=== PATIENT | male | born 1975 | race American Indian/Alaskan Native ===

== ENCOUNTER 2019-11-16 11:06 | Inpatient (IN) | payer OTHER ==
--- NOTE | 2019-11-16 11:21 | Event Note ---
ED Screening Note Date of service: 11/16/19 Time: 11:18 ED Screening Note: Pt complains of abdominal pain x 1 month and hematemesis x 2 weeks pain is periumbilical denies hx of HTN-BP 259/165 denies melena or hematochezia This initial assessment/diagnostic orders/clinical plan/treatment(s) is/are subject to change based on patients health status, clinical progression and re- assessment by fellow clinical providers in the ED. Further treatment and workup at subsequent clinical providers discretion. Patient/guardian urged not to elope from the ED as their condition may be serious if not clinically assessed and managed. Initial orders include: MAIN labs CT
--- NOTE | 2019-11-16 11:51 | Emergency Department Report ---
HPI - General Chief Complaint: Nausea/Vomiting/Diarrhea Time Seen by Provider: 11/16/19 11:17 - HPI HPI: 44-year-old male presents to the emergency department from home with complaint of nausea and vomiting, mild abdominal discomfort and vomiting blood. The patient says that he has been having one to 2 episodes of nausea and vomiting every day, usually in the morning, for the past month. He first saw some blood tinged emesis about 2 weeks ago but once again saw it this morning, which is what prompted him to come in. He complains of some intermittent mild mid abdominal pain and says that he has a "knot" there. The patient also p resents with extremely elevated blood pressure. He denies any history of hypertension or any other past medical history, but does not follow up with a primary care physician and has not for "years." He has not taken anything for her symptoms prior to presentation today. He is a tobacco smoker. Denies illicit drug use. Does drink a moderate amount of caffeine. ED Past Medical Hx - Social History Smoking Status: Current Every Day Smoker Substance Use Type: Marijuana ED Review of Systems ROS: Stated complaint: VOMITNG AND ABD PAIN Other details as noted in HPI Comment: All other systems reviewed and negative Constitutional: denies: fever Eyes: denies: eye pain, vision change ENT: denies: ear pain, throat pain Respiratory: denies: cough, shortness of breath Cardiovascular: denies: chest pain, palpitations Gastrointestinal: abdominal pain, nausea, vomiting, hematemesis Genitourinary: denies: dysuria, discharge Musculoskeletal: denies: back pain, arthralgia Skin: denies: rash, lesions Neurological: denies: headache, weakness Physical Exam - Physical Exam Vital Signs: Vital Signs 11/16/19 11:17 Temperature 98.3 F Pulse Rate 96 H Respiratory 18 Rate Blood Pressure 259/165 O2 Sat by Pulse 99 Oximetry Physical Exam: GENERAL: The patient is well-developed well-nourished. HEENT: Normocephalic. Atraumatic. Patient has moist mucous membranes. EYES: Extraocular motions are intact. NECK: Supple. Trachea is midline CHEST/LUNGS: Clear to auscultation. There is no respiratory distress noted. HEART/CARDIOVASCULAR: Regular. There is no tachycardia. ABDOMEN: Abdomen is soft, nontender. Patient has normal bowel sounds. There is no abdominal distention. SKIN: Skin is warm and dry. NEURO: The patient is awake, alert, and oriented. The patient is cooperative. The patient has no focal neurologic deficits. Normal speech. MUSCULOSKELETAL: There is no tenderness or deformity. There is no limitation range of motion. There is no evidence of acute injury. ED Course Vital Signs 11/16/19 11:17 Temperature 98.3 F Pulse Rate 96 H Respiratory 18 Rate Blood Pressure 259/165 O2 Sat by Pulse 99 Oximetry ED Medical Decision Making - Lab Data Result diagrams: 11/16/19 11:37 11/16/19 11:37 - Radiology Data Radiology results: report reviewed CT ABDOMEN AND PELVIS WITHOUT CONTRAST INDICATION / CLINICAL INFORMATION: Abdominal pain and renal failure. TECHNIQUE: Axial CT images were obtained through the abdomen and pelvis without IV contrast. All CT scans at this location are performed using CT dose reduction for ALARA by means of automated exposure control. COMPARISON: None available. FINDINGS: LOWER CHEST: No significant abnormality. LIVER: No significant abnormality. GALLBLADDER: No significant abnormality. BILE DUCTS: No significant abnormality. PANCREAS: No significant abnormality. SPLEEN: No significant abnormality. ADRENALS: No significant abnormality. RIGHT KIDNEY and URETER: Subcentimeter hypoattenuating cystic lesion at the lowe r pole posteriorly is incompletely characterized on this noncontrast examination. No calculus, hydronephrosis or other acute abnormality is evident. LEFT KIDNEY and URETER: No significant abnormality. STOMACH and SMALL BOWEL: No significant abnormality. COLON: No significant abnormality. APPENDIX: No significant abnormality. PERITONEUM: No free fluid. No free air. No fluid collection. LYMPH NODES: No adenopathy. AORTA and ARTERIES: No significant abnormality. IVC and VEINS: No significant abnormality. URINARY BLADDER: No significant abnormality. REPRODUCTIVE ORGANS: No significant abnormality. ADDITIONAL FINDINGS: None. SKELETAL SYSTEM: No acute abnormality. Degenerative disc disease of greatest severity at L5-S1. IMPRESSION: 1. No acute abnormality. A nonemergent renal protocol CT with IV contrast could be considered for further evaluation of the small right renal cyst, when the patient is able. - Medical Decision Making This patient presents to the emergency department with a complaint of having nausea and vomiting at least once a day and today having some hematemesis. He also presents with extremely elevated blood pressure with a systolic greater than 250. The patient has not followed with a primary care physician in many years. Patient's labs show renal failure with a GFR of 28. He has some mild hypokalemia that was replaced with potassium chloride. The rest of the labs are mostly unremarkable including CBC, metabolic panel and U/A. The patient had a CT scan of the abdomen and pelvis that did not show any significant abnormality. The patient has not had any further nausea or vomiting, hematemesis, since being in the emergency department. The patient was given 20 mg of labetalol, followed by 20 mg of hydralazine, that did not make much improvement in the patient's severe hypertension. He will be placed on a Cardene drip and admitted to the ICU. The patient was accepted for admission by the hospitalist, Dr. Bates. - Differential Diagnosis Jenny-Houston tear, malignancy, gastritis, hypertensive crisis Critical Care Time: Yes Critical care time in (mins) excluding proc time.: 35 Critical care attestation.: If time is entered above; I have spent that time in minutes in the direct care of this critically ill patient, excluding procedure time. Critical care time was spent on this patient and doing his initial evaluation, multiple re- evaluations, ordering and interpretation of labs and imaging, multiple discussio ns with the patient and his family, ordering of antihypertensive medications including the Cardene drip. Critical Care Time: 35 ED Disposition Clinical Impression: Accelerated hypertension, Hypokalemia Renal failure Qualifiers: Renal failure chronicity: acute Acute renal failure type: unspecified Qualified Code(s): N17.9 - Acute kidney failure, unspecified Disposition: PAT REG,NO TRIAGE Is pt being admited?: Yes Condition: Serious Time of Disposition: 14:49
[2019-11-16 12:30] LABS: Basophils % (Auto) 0.6 % (0.0-1.8); Eosinophils % (Auto) 0.2 % (0.0-4.3); Hematocrit 40.1 % (35.5-45.6); Hemoglobin 13.3 gm/dl (11.8-15.2); Lymphocytes # (Auto) 1.3 K/mm3 (1.2-5.4); Lymphocytes % (Auto) 15.1 % (13.4-35.0); Mean Corpuscular HGB Conc 33 % (32-34); Mean Corpuscular Volume 85 fl (84-94); Monocytes % (Auto) 11.9 % (0.0-7.3); Platelet Count 118 K/mm3 (140-440); Red Blood Count 4.74 M/mm3 (3.65-5.03); Red Cell Distribution Width 16.2 % (13.2-15.2)
[2019-11-16 12:32] LABS: INR 1.12 (0.87-1.13)
[2019-11-16 12:33] LABS: Partial Thromboplastin Time 32.9 Sec. (24.2-36.6)
[2019-11-16 13:11] LABS: Albumin 4.1 g/dL (3.9-5); Calcium 9.2 mg/dL (8.4-10.2)
[2019-11-16] MEDS ORDERED: POTASSIUM CHLORIDE ER 20 MEQ TAB PO ONE (13:12)
[2019-11-16] MEDS ORDERED: hydrALAZINE 20 MG/1 ML INJ IV ONE (13:19)
[2019-11-16 13:37] LABS: Bilirubin,Urine NEG (Negative); Blood,Urine MOD (Negative); Color,Urine Yellow (Yellow); Urobilinogen,Urine < 2.0 mg/dL (<2.0)
--- NOTE | 2019-11-16 14:35 | Cat Scan Report ---
CT ABDOMEN AND PELVIS WITHOUT CONTRAST INDICATION / CLINICAL INFORMATION: Abdominal pain and renal failure. TECHNIQUE: Axial CT images were obtained through the abdomen and pelvis without IV contrast. All CT scans [facility] are performed using CT dose reduction for ALARA by means of automated exposure control. COMPARISON: None available. FINDINGS: LOWER CHEST: No significant abnormality. LIVER: No significant abnormality. GALLBLADDER: No significant abnormality. BILE DUCTS: No significant abnormality. PANCREAS: No significant abnormality. SPLEEN: No significant abnormality. ADRENALS: No significant abnormality. RIGHT KIDNEY and URETER: Subcentimeter hypoattenuating cystic lesion at the lower pole posteriorly is incompletely characterized on this noncontrast examination. No calculus, hydronephrosis or other acu te abnormality is evident. LEFT KIDNEY and URETER: No significant abnormality. STOMACH and SMALL BOWEL: No significant abnormality. COLON: No significant abnormality. APPENDIX: No significant abnormality. PERITONEUM: No free fluid. No free air. No fluid collection. LYMPH NODES: No adenopathy. AORTA and ARTERIES: No significant abnormality. IVC and VEINS: No significant abnormality. URINARY BLADDER: No significant abnormality. REPRODUCTIVE ORGANS: No significant abnormality. ADDITIONAL FINDINGS: None. SKELETAL SYSTEM: No acute abnormality. Degenerative disc disease of greatest severity at L5-S1. IMPRESSION: 1. No acute abnormality. A nonemergent renal protocol CT with IV contrast could be considered for fu rther evaluation of the small right renal cyst, when the patient is able. Signer Name: Nishant Wright MD Signed: 11/16/2019 2:30 PM Workstation Name: [id number]
[2019-11-16] MEDS: niCARdipine 50 MG in SODIUM CHLORIDE 0.9% 250ML 230 ML IV SCH ×2 (16:06→22:08)
[2019-11-16] MEDS ORDERED: ACETAMINOPHEN 325 MG TAB PO PRN (17:41)
[2019-11-16] MEDS ORDERED: SODIUM CHLORIDE 0.45% 1000 ML 1,000 ML IV SCH (18:00)
[2019-11-16] MEDS: ONDANSETRON 4 MG/2 ML INJ IV PRN (20:24)
--- NOTE | 2019-11-16 20:57 | History and Physical Report ---
History of Present Illness Date of admission: 11/16/19 14:49 History of present illness: 44-year-old man who presents to the hospital complaining of vomiting x1 month and hematemesis x2 weeks. The patient states that he did not come to the hospital because he is afraid of doctors and hospitals and he also had to work and could not get the time off. His family members noted that he was vomiting blood and then encouraged him to come into the hospital today. At this time the patient is still complaining of some nausea, but has not vomiting since he has been here. He states that he has not seen a doctor in many years and does not take any medications. He admits to smoking marijuana daily. Past medical history denies chronic medical problems Past surgical history denies major surgeries Social history; current everyday smoker, current everyday marijuana abuser Family history; heart disease Medications and Allergies Allergies Allergy/AdvReac Type Severity Reaction Status Date / Time No Known Allergies Allergy Unverified 11/16/19 11:13 Active Meds: Active Medications Acetaminophen (Tylenol) 650 mg PO Q4H PRN PRN Reason: Pain MILD(1-3)/Fever >100.5/KELLEY Nicardipine HCl 50 mg/ Sodium (Chloride) 250 mls @ 25 mls/hr IV TITR FLEX; Protocol Last Titration: 11/16/19 20:50 Dose: 10 mg/hr, 50 mls/hr Documented by: Sodium Chloride (Nacl 0.45% 1000 Ml) 1,000 mls @ 125 mls/hr IV DIRECT FLEX Nicotine (Habitrol) 14 mg TD QDAY FLEX Nifedipine (Procardia Xl) 90 mg PO Q12H FLEX Ondansetron HCl (Zofran) 4 mg IV Q8H PRN PRN Reason: Nausea And Vomiting Last Admin: 11/16/19 20:24 Dose: 4 mg Documented by: Pantoprazole Sodium (Protonix) 40 mg PO QDAY FLEX Sodium Chloride (Sodium Chloride Flush Syringe 10 Ml) 10 ml IV BID FLEX Sodium Chloride (Sodium Chloride Flush Syringe 10 Ml) 10 ml IV PRN PRN PRN Reason: LINE FLUSH Exam - Constitutional Vitals: Temp Pulse Resp BP Pulse Ox 98.2 F 95 H 27 H 149/91 92 11/16/19 13:00 11/16/19 20:00 11/16/19 20:00 11/16/19 20:00 11/16/19 20:00 Results - Labs CBC & Chem 7: 11/16/19 11:37 11/16/19 11:37 Labs: Laboratory Last Values WBC 8.6 K/mm3 (4.5-11.0) 11/16/19 11:37 RBC 4.74 M/mm3 (3.65-5.03) 11/16/19 11:37 Hgb 13.3 gm/dl (11.8-15.2) 11/16/19 11:37 Hct 40.1 % (35.5-45.6) 11/16/19 11:37 MCV 85 fl (84-94) 11/16/19 11:37 MCH 28 pg (28-32) 11/16/19 11:37 MCHC 33 % (32-34) 11/16/19 11:37 RDW 16.2 % (13.2-15.2) H 11/16/19 11:37 Plt Count 118 K/mm3 (140-440) L 11/16/19 11:37 Lymph % (Auto) 15.1 % (13.4-35.0) 11/16/19 11:37 [place] % (Auto) 11.9 % (0.0-7.3) H 11/16/19 11:37 Eos % (Auto) 0.2 % (0.0-4.3) 11/16/19 11:37 Baso % (Auto) 0.6 % (0.0-1.8) 11/16/19 11:37 Lymph # 1.3 K/mm3 (1.2-5.4) 11/16/19 11:37 [place] # 1.0 K/mm3 (0.0-0.8) H 11/16/19 11:37 Eos # 0.0 K/mm3 (0.0-0.4) 11/16/19 11:37 Baso # 0.0 K/mm3 (0.0-0.1) 11/16/19 11:37 Seg Neutrophils % 72.2 % (40.0-70.0) H 11/16/19 11:37 Seg Neutrophils # 6.2 K/mm3 (1.8-7.7) 11/16/19 11:37 PT 14.6 Sec. (12.2-14.9) 11/16/19 11:37 INR 1.12 (0.87-1.13) 11/16/19 11:37 APTT 32.9 Sec. (24.2-36.6) 11/16/19 11:37 Sodium 141 mmol/L (137-145) 11/16/19 11:37 Potassium 3.2 mmol/L (3.6-5.0) L 11/16/19 11:37 Chloride 102.2 mmol/L (98-107) 11/16/19 11:37 Carbon Dioxide 23 mmol/L (22-30) 11/16/19 11:37 Anion Gap 19 mmol/L 11/16/19 11:37 BUN 29 mg/dL (9-20) H 11/16/19 11:37 Creatinine 3.0 mg/dL (0.8-1.5) H 11/16/19 11:37 Estimated GFR 23 ml/min 11/16/19 11:37 BUN/Creatinine Ratio 10 % 11/16/19 11:37 Glucose 93 mg/dL (75-100) 11/16/19 11:37 Calcium 9.2 mg/dL (8.4-10.2) 11/16/19 11:37 Total Bilirubin 0.60 mg/dL (0.1-1.2) 11/16/19 11:37 AST 24 units/L (5-40) 11/16/19 11:37 ALT 17 units/L (7-56) 11/16/19 11:37 Alkaline Phosphatase 104 units/L (35-129) 11/16/19 11:37 Total Protein 7.3 g/dL (6.3-8.2) 11/16/19 11:37 Albumin 4.1 g/dL (3.9-5) 11/16/19 11:37 Albumin/Globulin Ratio 1.3 % 11/16/19 11:37 Lipase 30 units/L (13-60) 11/16/19 11:37 Urine Color Yellow (Yellow) 11/16/19 12:59 Urine Turbidity Clear (Clear) 11/16/19 12:59 Urine pH 6.0 (5.0-7.0) 11/16/19 12:59 Ur Specific [place] 1.011 (1.003-1.030) 01/04/20 12:59 Urine Protein 100 mg/dl mg/dL (Negative) 11/16/19 12:59 Urine Glucose (UA) Neg mg/dL (Negative) 11/16/19 12:59 Urine Ketones Neg mg/dL (Negative) 11/16/19 12:59 Urine Blood Mod (Negative) 11/16/19 12:59 Urine Nitrite Neg (Negative) 11/16/19 12:59 Urine Bilirubin Neg (Negative) 11/16/19 12:59 Urine Urobilinogen < 2.0 mg/dL (<2.0) 11/16/19 12:59 Ur Leukocyte Esterase Tr (Negative) 11/16/19 12:59 Urine WBC (Auto) 8.0 /HPF (0.0-6.0) H 11/16/19 12:59 Urine RBC (Auto) 2.0 /HPF (0.0-6.0) 11/16/19 12:59 U Epithel Cells (Auto) < 1.0 /HPF (0-13.0) 11/16/19 12:59 Assessment and Plan Assessment and plan: 44-year-old man who presents to the hospital with 1 month of nausea vomiting and 2 weeks of hematemesis, found to have severe hypertension requiring Cardene drip and ICU admission CT abdomen and pelvis 1. No acute abnormality. A nonemergent renal protocol CT with IV contrast could be considered for further evaluation of the small right renal cyst, when the patient is able. Hypertensive emergency Continue Cardene drip, will try to wean to oral medications if patient able to tolerate Hematemesis and intractable nausea vomiting Differential diagnosis include , peptic ulcer disease, gastritis, the bleeding started 2 weeks after the vomiting so patient may have Jenny-Houston tears. Given that the patient admits to daily marijuana abuse and frequent showering when he feels sick, the patient may be suffering from cannabinoid hyperemesis syndrome, but need to exclude a functional diagnosis first. GI consulted, PPI Marijuana abuse Tobacco abuse/dependence Smoking cessation counseling performed for 10 minutes, nicotine patches when necessary Preventative health counseling performed for 17 minutes Acute versus chronic kidney disease Patient has not seen a doctor in many years and this may be his baseline creatinine, trial of IV fluids, nephrology consult Hypokalemia Was repleted, recheck in a.m. Right renal cyst, radiology recommended repeat CT with IV contrast, but given kidney failure will defer to nephrology to see if this is indicated, in the meantime will obtain renal ultrasound DVT prophylaxis with SCDs Critical care time 35 minutes
[2019-11-17] MEDS: niCARdipine 50 MG in SODIUM CHLORIDE 0.9% 250ML 230 ML IV SCH ×3 (02:12→08:14)
[2019-11-17] MEDS: NIFEdipine XL 90 MG TAB PO SCH ×2 (06:24→08:03)
[2019-11-17 06:47] LABS: Basophils # (Auto) 0.1 K/mm3 (0.0-0.1); Basophils % (Auto) 0.6 % (0.0-1.8); Eosinophils % (Auto) 0.4 % (0.0-4.3); Hematocrit 37.4 % (35.5-45.6); Hemoglobin 12.5 gm/dl (11.8-15.2); Lymphocytes # (Auto) 2.1 K/mm3 (1.2-5.4); Lymphocytes % (Auto) 21.3 % (13.4-35.0); Mean Corpuscular HGB Conc 33 % (32-34); Mean Corpuscular Volume 84 fl (84-94); Monocytes # (Auto) 1.3 K/mm3 (0.0-0.8); Monocytes % (Auto) 12.7 % (0.0-7.3); Platelet Count 116 K/mm3 (140-440); Red Blood Count 4.46 M/mm3 (3.65-5.03); Red Cell Distribution Width 16.7 % (13.2-15.2)
[2019-11-17 07:10] LABS: Calcium 9.1 mg/dL (8.4-10.2)
[2019-11-17] MEDS: PANTOPRAZOLE 40 MG TAB PO SCH ×2 (08:03→10:26)
[2019-11-17] MEDS: ONDANSETRON 4 MG/2 ML INJ IV PRN (08:35)
--- NOTE | 2019-11-17 09:07 | Gastroenterology Consultation ---
History of Present Illness - Reason for Consult Consult date: 11/17/19 intractable n/v, hematemesis Requesting physician: NICOLE STOLL - History of Present Illness The patient is a 44 yo aam who presents with intractable n/v/hematemesis and found to have hypertensive emergency for which he has been admitted to the ICU. He reports having daily episodes of n/v for ~1 month; this occurs with and w/o meals. he noticed blood with emesis episodes prior to admission. He has been taking frequent nsaid's for headaches recently. Also reports daily marijuana use. Denies melena or abd pain. No episodes of emesis since admission. Past History Past Medical History: other (no known past medical history) Past Surgical History: No surgical history Social history: other (marijuana abuse) Family history: no significant family history Medications and Allergies Allergies Allergy/AdvReac Type Severity Reaction Status Date / Time No Known Allergies Allergy Unverified 11/16/19 11:13 Home Medications Medication Instructions Recorded Confirmed Last Taken Type No Known Home Medications [No 11/16/19 11/16/19 Unknown History Reported Home Medications] Active Meds: Active Medications Acetaminophen (Tylenol) 650 mg PO Q4H PRN PRN Reason: Pain MILD(1-3)/Fever >100.5/KELLEY Nicardipine HCl 50 mg/ Sodium (Chloride) 250 mls @ 25 mls/hr IV TITR FLEX; Protocol Last Admin: 11/17/19 08:14 Dose: 10 mg/hr, 50 mls/hr Documented by: Sodium Chloride (Nacl 0.45% 1000 Ml) 1,000 mls @ 125 mls/hr IV DIRECT FLEX Nicotine (Habitrol) 14 mg TD QDAY FLEX Nifedipine (Procardia Xl) 90 mg PO Q12H [facility] Last Admin: 11/17/19 08:03 Dose: Not Given Documented by: Ondansetron HCl (Zofran) 4 mg IV Q8H PRN PRN Reason: Nausea And Vomiting Last Admin: 11/17/19 08:35 Dose: 4 mg Documented by: Pantoprazole Sodium (Protonix) 40 mg PO QDAY FLEX Last Admin: 11/17/19 08:03 Dose: Not Given Documented by: Sodium Chloride (Sodium Chloride Flush Syringe 10 Ml) 10 ml IV BID [facility] Last Admin: 11/17/19 06:24 Dose: Not Given Documented by: Sodium Chloride (Sodium Chloride Flush Syringe 10 Ml) 10 ml IV PRN PRN PRN Reason: LINE FLUSH Reviewed/updated patient's home and current medications Review of Systems - Review of Systems All systems: negative (per HPI) Exam - Constitutional Vital Signs: Temp Pulse Resp BP Pulse Ox 98.6 F 101 H 18 146/72 95 11/17/19 03:29 11/17/19 08:15 11/17/19 08:15 11/17/19 08:15 11/17/19 08:15 General appearance: no acute distress, obese - EENT Eyes: PERRL, EOM intact - Respiratory Respiratory effort: normal Respiratory: bilateral: CTA - Cardiovascular Rhythm: regular Heart Sounds: Present: S1 & S2 - Gastrointestinal General gastrointestinal: Present: soft, non-tender, non-distended, hernia - Integumentary Integumentary: Present: clear, warm - Neurologic Neurological: alert and oriented x3 - Psychiatric Psychiatric: appropriate mood/affect - Labs CBC & Chem 7: 11/17/19 06:14 11/17/19 06:14 Lab Results: Laboratory Results - last 24 hr 11/16/19 11/16/19 11/16/19 11:37 11:37 11:37 WBC 8.6 RBC 4.74 Hgb 13.3 Hct 40.1 MCV 85 MCH 28 MCHC 33 RDW 16.2 H Plt Count 118 L Lymph % (Auto) 15.1 [place] % (Auto) 11.9 H Eos % (Auto) 0.2 Baso % (Auto) 0.6 Lymph # 1.3 Mcdonald # 1.0 H Eos # 0.0 Baso # 0.0 Seg Neutrophils % 72.2 H Seg Neutrophils # 6.2 PT 14.6 INR 1.12 APTT 32.9 Sodium 141 Potassium 3.2 L Chloride 102.2 Carbon Dioxide 23 Anion Gap 19 BUN 29 H Creatinine 3.0 H Estimated GFR 23 BUN/Creatinine Ratio 10 Glucose 93 Calcium 9.2 Total Bilirubin 0.60 AST 24 ALT 17 Alkaline Phosphatase 104 Total Protein 7.3 Albumin 4.1 Albumin/Globulin Ratio 1.3 Lipase Urine Color Urine Turbidity Urine pH Ur Specific [place] Urine Protein Urine Glucose (UA) Urine Ketones Urine Blood Urine Nitrite Urine Bilirubin Urine Urobilinogen Ur Leukocyte Esterase Urine WBC (Auto) Urine RBC (Auto) U Epithel Cells (Auto) 11/16/19 11/16/19 11/17/19 11:37 12:59 06:14 WBC 10.1 RBC 4.46 Hgb 12.5 Hct 37.4 MCV 84 MCH 28 MCHC 33 RDW 16.7 H Plt Count 116 L Lymph % (Auto) 21.3 [place] % (Auto) 12.7 H Eos % (Auto) 0.4 Baso % (Auto) 0.6 Lymph # 2.1 [place] # 1.3 H Eos # 0.0 Baso # 0.1 Seg Neutrophils % 65.0 Seg Neutrophils # 6.6 PT INR APTT Sodium Potassium Chloride Carbon Dioxide Anion Gap BUN Creatinine Estimated GFR BUN/Creatinine Ratio Glucose Calcium Total Bilirubin AST ALT Alkaline Phosphatase Total Protein Albumin Albumin/Globulin Ratio Lipase 30 Urine Color Yellow Urine Turbidity Clear Urine pH 6.0 Ur Specific [place] 1.011 Urine Protein 100 mg/dl Urine Glucose (UA) Neg Urine Ketones Neg Urine Blood Mod Urine Nitrite Neg Urine Bilirubin Neg Urine Urobilinogen < 2.0 Ur Leukocyte Esterase Tr Urine WBC (Auto) 8.0 H Urine RBC (Auto) 2.0 U Epithel Cells (Auto) < 1.0 11/17/19 06:14 WBC RBC Hgb Hct MCV MCH MCHC RDW Plt Count Lymph % (Auto) [place] % (Auto) Eos % (Auto) Baso % (Auto) Lymph # Mcd[place] # Eos # Baso # Seg Neutrophils % Seg Neutrophils # PT INR APTT Sodium 137 Potassium 2.9 L* Chloride 101.0 Carbon Dioxide 21 L Anion Gap 18 BUN 26 H Creatinine 2.8 H Estimated GFR 30 BUN/Creatinine Ratio 9 Glucose 124 H Calcium 9.1 Total Bilirubin AST ALT Alkaline Phosphatase Total Protein Albumin Albumin/Globulin Ratio Lipase Urine Color Urine Turbidity Urine pH Ur Specific [place] Urine Protein Urine Glucose (UA) Urine Ketones Urine Blood Urine Nitrite Urine Bilirubin Urine Urobilinogen Ur Leukocyte Esterase Urine WBC (Auto) Urine RBC (Auto) U Epithel Cells (Auto) Assessment and Plan 1. Intractable nausea/vomiting - improved since admission; could be 2/2 degree of hypertension vs hyperemesis from marijuana, vs other etiology. tolerating po today. 2. Hematemesis - prior to admission; H/H normal and has remained stable. cont PPI. monitor for time being given normal labs and no further episodes since admission. diagnostic EGD (eval for PUD, MWT, etc) can be done once acute medical issues resolved 3. Hypertensive emergency
[2019-11-17] MEDS ORDERED: METOCLOPRAMIDE 10 MG/2 ML INJ IV PRN (09:59)
[2019-11-17] MEDS: NICOTINE 14 MG/24 HR PATCH TD SCH (10:26)
[2019-11-17] MEDS ORDERED: POTASSIUM CHLORIDE ER 20 MEQ TAB PO ONE ×2 (10:57→12:57)
[2019-11-17] MEDS ORDERED: hydroCHLOROthiazide 25 MG TAB PO SCH (12:00)
[2019-11-17] MEDS ORDERED: amLODIPine 5 MG TAB PO SCH ×2 (12:00)
--- NOTE | 2019-11-17 12:03 | Consultation ---
History of Present Illness - Reason for Consult Consult date: 11/17/19 Hypertensive Emergency Requesting physician: NICOLE STOLL - History of Present Illness 44 y/o, obese male admitted with nausea and vomiting for at least a month per the fidarryne'. Patient admitted and started on Cardene drip. Also found to be in Renal Failure. patient is awake and alert. Stable now. Still hypertensive. Has not had any more emesis since admission. Remains on Cardene drip and BP is still elevated. has never gone to a physician. Diabetes and HTN run in family. Not currently on any meds. Still smokes with cigarettes. Past History Past Medical History: other (no known past medical history) Past Surgical History: No surgical history Social history: other (marijuana abuse) Family history: no significant family history Medications and Allergies Allergies Allergy/AdvReac Type Severity Reaction Status Date / Time No Known Allergies Allergy Unverified 11/16/19 11:13 Home Medications Medication Instructions Recorded Confirmed Last Taken Type No Known Home Medications [No 11/16/19 11/16/19 Unknown History Reported Home Medications] Active Meds: Active Medications Acetaminophen (Tylenol) 650 mg PO Q4H PRN PRN Reason: Pain MILD(1-3)/Fever >100.5/KELLEY Amlodipine Besylate (Amlodipine) 5 mg PO QDAY [facility] Hydrochlorothiazide (Hctz) 25 mg PO QDAY [facility] Nicardipine HCl 50 mg/ Sodium (Chloride) 250 mls @ 25 mls/hr IV TITR [facility]; Protocol Last Admin: 11/17/19 08:14 Dose: 10 mg/hr, 50 mls/hr Documented by: Labetalol HCl (Labetalol) 100 mg PO BID FLEX Metoclopramide HCl (Reglan) 10 mg IV Q8H PRN PRN Reason: Nausea And Vomiting Nicotine (Habitrol) 14 mg TD QDAY [facility] Last Admin: 11/17/19 10:26 Dose: 14 mg Documented by: Ondansetron HCl (Zofran) 4 mg IV Q8H PRN PRN Reason: N/V unrelieved by Reglan Last Admin: 11/17/19 08:35 Dose: 4 mg Documented by: Pantoprazole Sodium (Protonix) 40 mg PO QDAY [facility] Last Admin: 11/17/19 10:26 Dose: 40 mg Documented by: Potassium Chloride (K-Dur) 20 meq PO ONCE ONE Stop: 11/17/19 12:58 Sodium Chloride (Sodium Chloride Flush Syringe 10 Ml) 10 ml IV BID FLEX Last Admin: 11/17/19 10:26 Dose: 10 ml Documented by: Sodium Chloride (Sodium Chloride Flush Syringe 10 Ml) 10 ml IV PRN PRN PRN Reason: LINE FLUSH Review of Systems All systems: negative Exam - Constitutional Vitals: Temp Pulse Resp BP Pulse Ox 98.6 F 103 H 17 150/110 98 11/17/19 03:29 11/17/19 11:00 11/17/19 11:00 11/17/19 11:00 11/17/19 11:00 General appearance: Present: no acute distress, obese - EENT Eyes: Present: PERRL, EOM intact ENT: poor dentition - Neck Neck: Present: supple, other (large in circumference) - Respiratory Respiratory effort: normal Respiratory: bilateral: CTA - Cardiovascular Rhythm: regular (sinus tachycardia) Heart Sounds: Present: S1 & S2 - Extremities Extremities: no ischemia - Abdominal General gastrointestinal: Present: soft, non-tender, normal bowel sounds - Integumentary Integumentary: Present: clear (Many, many tattoos), warm, dry - Musculoskeletal Musculoskeletal: strength equal bilaterally - Psychiatric Psychiatric: appropriate mood/affect - Neurologic Neurologic: CNII-XII intact Results - Labs CBC & Chem 7: 11/17/19 06:14 11/17/19 06:14 Labs: Abnormal lab results 11/16/19 11/16/19 11/16/19 Range/Units 11:37 11:37 12:59 RDW 16.2 H (13.2-15.2) % Plt Count 118 L (140-440) K/mm3 Gregory % (Auto) 11.9 H (0.0-7.3) % Gregory # 1.0 H (0.0-0.8) K/mm3 Seg Neutrophils % 72.2 H (40.0-70.0) % Potassium 3.2 L (3.6-5.0) mmol/L Carbon Dioxide (22-30) mmol/L BUN 29 H (9-20) mg/dL Creatinine 3.0 H (0.8-1.5) mg/dL Glucose (75-100) mg/dL Urine WBC (Auto) 8.0 H (0.0-6.0) /HPF 11/17/19 11/17/19 Range/Units 06:14 06:14 RDW 16.7 H (13.2-15.2) % Plt Count 116 L (140-440) K/mm3 Gregory % (Auto) 12.7 H (0.0-7.3) % Gregory # 1.3 H (0.0-0.8) K/mm3 Seg Neutrophils % (40.0-70.0) % Potassium 2.9 L* (3.6-5.0) mmol/L Carbon Dioxide 21 L (22-30) mmol/L BUN 26 H (9-20) mg/dL Creatinine 2.8 H (0.8-1.5) mg/dL Glucose 124 H (75-100) mg/dL Urine WBC (Auto) (0.0-6.0) /HPF - Imaging and Cardiology CT scan - abdomen: report reviewed CT scan - pelvis: report reviewed Assessment and Plan 44 y/o male with Hypertensive Emergency and renal failure 1. Continue cardene drip 2. Will start Norvasc 10 and labetalol 100 BID. Will likely need more drugs but did not want to give diuretic with renal failure 3. Reviewed GI note 4. Await renal evaluation. Agree with ultrasound but needs urine lytes as well 5. Smoking cessation, discussed at bedside. 6. Weight loss 7. Should be screened for diabetes and hyperlipidemia while here. Continue ICU care until weaned off drip. Goal should be systolics in the 160's over diastolics in the 90's.
--- NOTE | 2019-11-17 15:11 | Ultrasound Report ---
CHEST 1 VIEW INDICATION / CLINICAL INFORMATION: Acute kidney injury, renal cyst. FINDINGS: Comparison is made to a CT of the abdomen and pelvis performed yesterday. Right kidney length 11.4 cm. Cortical thickness is normal, but echogenicity is increased. No apprecia ble mass, calculus or hydronephrosis. Left renal length 10.3 cm. Cortical thickness is normal, but echogenicity is increased. No appreciabl e mass, calculus or hydronephrosis. Unremarkable appearance of the bladder. IMPRESSION: No hydronephrosis. Increased cortical echogenicity of the kidneys is suggestive of underl lex intrinsic renal disease. Signer Name: Nishant Wright MD Signed: 11/17/2019 3:07 PM Workstation Name: [id number]
[2019-11-17] MEDS ORDERED: hydrALAZINE 20 MG/1 ML INJ IV PRN (16:00)
--- NOTE | 2019-11-17 16:07 | Progress Note ---
Assessment and Plan Assessment and plan: Patient is a 44-year-old man with a history of tobacco dependency and daily marijuana use who presented to [facility] ED with n/v off and on x 2 weeks then developed coffee ground emesis/bloody emesis. He was found to have severe hypertension requiring IV Cardene drip and ICU admission. Cr was found to be 3.0 without history of any kidney problems that he is aware of. * CT abdomen and pelvis 1. No acute abnormality. A nonemergent renal protocol CT with IV contrast could be considered for further evaluation of the small right renal cyst, when the patient is able. Hypertensive emergency weaned off Cardene drip, started oral medications if patient able to tolerate Hematemesis and intractable nausea vomiting Differential diagnosis include , peptic ulcer disease, gastritis, the bleeding started 2 weeks after the vomiting so patient may have Jenny-Houston tears. Given that the patient admits to daily marijuana abuse and frequent showering when he feels sick, the patient may be suffering from cannabinoid hyperemesis syndrome, but need to exclude a functional diagnosis first. GI consulted, PPI Marijuana abuse and Tobacco abuse/dependence Smoking cessation counseling ARF, vasomotor nephropathy, poa Patient has not seen a doctor in many years and this may be his baseline creatinine, trial of IV fluids, nephrology consult Renal u/s pending Hypokalemia Was repleted, recheck in a.m. DVT prophylaxis with SCDs History Interval history: Patient was seen and examined. Follow-up on current diagnosis. Overnight uneventful as no events directly reported to me. Patient denies any chest pain, shortness breath, nausea/vomiting or severe headaches. Imaging, nursing note, chart, labs and old chart reviewed. Discussed with patient. Hospitalist Physical - Physical exam Narrative exam: Gen: WDWN, NAD, Awake, Alert, Orientated HEENT: NCAT, EOMI, PERRL, OP Clear Neck: supple, no adenopathy, no thyromegaly, no JVD CVS/Heart: RRR, normal S1S2, pulses present bilaterally Chest/Lungs: CTA B, Symmetrical chest expansion, good air entry bilaterally GI/Abdomen: soft, NTND, good bowel sounds, no guarding or rebound /Bladder: no suprapubic tenderness, no CVA or paraspinal tenderness Extermity/Skin: no c/c/e, no obvious rash MSK: FROM x 4 Neuro: CN 2-12 grossly intact, no new focal deficits Psych: calm - Constitutional Vitals: Temp Pulse Resp BP Pulse Ox 98.3 F 114 H 36 H 190/87 98 11/17/19 12:00 11/17/19 13:31 11/17/19 13:31 11/17/19 13:31 11/17/19 13:31 General appearance: Present: no acute distress, obese Results - Labs CBC & Chem 7: 11/17/19 06:14 11/17/19 06:14 Labs: Laboratory Last Values WBC 10.1 K/mm3 (4.5-11.0) 11/17/19 06:14 RBC 4.46 M/mm3 (3.65-5.03) 11/17/19 06:14 Hgb 12.5 gm/dl (11.8-15.2) 11/17/19 06:14 Hct 37.4 % (35.5-45.6) 11/17/19 06:14 MCV 84 fl (84-94) 11/17/19 06:14 MCH 28 pg (28-32) 11/17/19 06:14 MCHC 33 % (32-34) 11/17/19 06:14 RDW 16.7 % (13.2-15.2) H 11/17/19 06:14 Plt Count 116 K/mm3 (140-440) L 11/17/19 06:14 Lymph % (Auto) 21.3 % (13.4-35.0) 11/17/19 06:14 [place] % (Auto) 12.7 % (0.0-7.3) H 11/17/19 06:14 Eos % (Auto) 0.4 % (0.0-4.3) 11/17/19 06:14 Baso % (Auto) 0.6 % (0.0-1.8) 11/17/19 06:14 Lymph # 2.1 K/mm3 (1.2-5.4) 11/17/19 06:14 [place] # 1.3 K/mm3 (0.0-0.8) H 11/17/19 06:14 Eos # 0.0 K/mm3 (0.0-0.4) 11/17/19 06:14 Baso # 0.1 K/mm3 (0.0-0.1) 11/17/19 06:14 Seg Neutrophils % 65.0 % (40.0-70.0) 11/17/19 06:14 Seg Neutrophils # 6.6 K/mm3 (1.8-7.7) 11/17/19 06:14 PT 14.6 Sec. (12.2-14.9) 11/16/19 11:37 INR 1.12 (0.87-1.13) 11/16/19 11:37 APTT 32.9 Sec. (24.2-36.6) 11/16/19 11:37 Sodium 137 mmol/L (137-145) 11/17/19 06:14 Potassium 2.9 mmol/L (3.6-5.0) L* 11/17/19 06:14 Chloride 101.0 mmol/L (98-107) 11/17/19 06:14 Carbon Dioxide 21 mmol/L (22-30) L 11/17/19 06:14 Anion Gap 18 mmol/L 11/17/19 06:14 BUN 26 mg/dL (9-20) H 11/17/19 06:14 Creatinine 2.8 mg/dL (0.8-1.5) H 11/17/19 06:14 Estimated GFR 30 ml/min 11/17/19 06:14 BUN/Creatinine Ratio 9 % 11/17/19 06:14 Glucose 124 mg/dL (75-100) H 11/17/19 06:14 Calcium 9.1 mg/dL (8.4-10.2) 11/17/19 06:14 Total Bilirubin 0.60 mg/dL (0.1-1.2) 11/16/19 11:37 AST 24 units/L (5-40) 11/16/19 11:37 ALT 17 units/L (7-56) 11/16/19 11:37 Alkaline Phosphatase 104 units/L (35-129) 11/16/19 11:37 Total Protein 7.3 g/dL (6.3-8.2) 11/16/19 11:37 Albumin 4.1 g/dL (3.9-5) 11/16/19 11:37 Albumin/Globulin Ratio 1.3 % 11/16/19 11:37 Lipase 30 units/L (13-60) 11/16/19 11:37 Urine Color Yellow (Yellow) 11/16/19 12:59 Urine Turbidity Clear (Clear) 11/16/19 12:59 Urine pH 6.0 (5.0-7.0) 11/16/19 12:59 Ur Specific [place] 1.011 (1.003-1.030) 11/16/19 12:59 Urine Protein 100 mg/dl mg/dL (Negative) 11/16/19 12:59 Urine Glucose (UA) Neg mg/dL (Negative) 11/16/19 12:59 Urine Ketones Neg mg/dL (Negative) 11/16/19 12:59 Urine Blood Mod (Negative) 11/16/19 12:59 Urine Nitrite Neg (Negative) 11/16/19 12:59 Urine Bilirubin Neg (Negative) 11/16/19 12:59 Urine Urobilinogen < 2.0 mg/dL (<2.0) 11/16/19 12:59 Ur Leukocyte Esterase Tr (Negative) 11/16/19 12:59 Urine WBC (Auto) 8.0 /HPF (0.0-6.0) H 11/16/19 12:59 Urine RBC (Auto) 2.0 /HPF (0.0-6.0) 11/16/19 12:59 U Epithel Cells (Auto) < 1.0 /HPF (0-13.0) 11/16/19 12:59 Active Medications - Current Medications Current Medications: Generic Name Dose Route Start Last Admin Trade Name Freq PRN Reason Stop Dose Admin Acetaminophen 650 mg 11/16/19 17:41 Tylenol PO Q4H PRN Pain MILD(1-3)/Fever >100.5/KELLEY Amlodipine Besylate 10 mg 11/17/19 12:00 11/17/19 13:10 Amlodipine PO 10 mg QDAY FLEX Administration Hydralazine HCl 10 mg 11/17/19 16:00 Apresoline IV Q4HR PRN Blood Pressure Hydralazine HCl 25 mg 11/17/19 22:00 Apresoline PO Q8HR FLEX Labetalol HCl 100 mg 11/17/19 12:00 11/17/19 13:11 Labetalol PO 100 mg BID FLEX Administration Metoclopramide HCl 10 mg 11/17/19 09:59 Reglan IV Q8H PRN Nausea And Vomiting Nicotine 14 mg 11/17/19 10:00 11/17/19 10:26 Habitrol TD 14 mg QDAY FLEX Administration Ondansetron HCl 4 mg 11/16/19 17:41 11/17/19 08:35 Zofran IV 4 mg Q8H PRN Administration N/V unrelieved by Coleen Pantoprazole Sodium 40 mg 11/16/19 18:00 11/17/19 10:26 Protonix PO 40 mg QDAY FLEX Administration Sodium Chloride 10 ml 11/16/19 22:00 11/17/19 10:26 Sodium Chloride Flush Syringe 10 Ml IV 10 ml BID FLEX Administration Sodium Chloride 10 ml 11/16/19 17:41 Sodium Chloride Flush Syringe 10 Ml IV PRN PRN LINE FLUSH
--- NOTE | 2019-11-17 17:32 | Consultation ---
History of Present Illness - Reason for Consult Consult date: 11/17/19 acute renal failure Requesting physician: NICOLE STOLL - History of Present Illness This is a 44 yo AAM with past medical history of who presents to [facility] ER with c/o frequent nausea, vomiting for the last few weeks, also had 2 episodes of hematemesis last week. In ER pt was found to be hypertensive with BP > 250/160mmHg. Labs showed stable Hb > 13, however BUN/Cr was elevated at 29/3.0mg/dl along with hypokalemia with K < 3, for which renal consult is requested. As per patient, he did not seek medical help because he is afraid of doctors and hospitals and he also had to work and could not get the time off. He states that he has not seen a doctor in many years and does not take any medications. He admits to smoking marijuana daily. He also reports that he has been taking ibuprofen/aleve almost daily for the last 6 months for headaches, and diffuse body aches. Past History Past Medical History: other (no known past medical history) Past Surgical History: No surgical history Social history: other (marijuana abuse) Family history: no significant family history Medications and Allergies Allergies Allergy/AdvReac Type Severity Reaction Status Date / Time No Known Allergies Allergy Unverified 11/16/19 11:13 Home Medications Medication Instructions Recorded Confirmed Last Taken Type No Known Home Medications [No 11/16/19 11/16/19 Unknown History Reported Home Medications] Active Meds: Active Medications Acetaminophen (Tylenol) 650 mg PO Q4H PRN PRN Reason: Pain MILD(1-3)/Fever >100.5/KELLEY Amlodipine Besylate (Amlodipine) 10 mg PO QDAY [facility] Last Admin: 11/17/19 13:10 Dose: 10 mg Documented by: Hydralazine HCl (Apresoline) 10 mg IV Q4HR PRN PRN Reason: Blood Pressure Hydralazine HCl (Apresoline) 25 mg PO Q8HR [facility] Labetalol HCl (Labetalol) 100 mg PO BID [facility] Last Admin: 11/17/19 13:11 Dose: 100 mg Documented by: Metoclopramide HCl (Reglan) 10 mg IV Q8H PRN PRN Reason: Nausea And Vomiting Nicotine (Habitrol) 14 mg TD QDAY [facility] Last Admin: 11/17/19 10:26 Dose: 14 mg Documented by: Ondansetron HCl (Zofran) 4 mg IV Q8H PRN PRN Reason: N/V unrelieved by Reglan Last Admin: 11/17/19 08:35 Dose: 4 mg Documented by: Pantoprazole Sodium (Protonix) 40 mg PO QDAY [facility] Last Admin: 11/17/19 10:26 Dose: 40 mg Documented by: Sodium Chloride (Sodium Chloride Flush Syringe 10 Ml) 10 ml IV BID [facility] Last Admin: 11/17/19 10:26 Dose: 10 ml Documented by: Sodium Chloride (Sodium Chloride Flush Syringe 10 Ml) 10 ml IV PRN PRN PRN Reason: LINE FLUSH Review of Systems All systems: negative Constitutional: fatigue, weakness Gastrointestinal: nausea, vomiting, hematemesis Exam - Vital Signs Vital signs: Vital Signs Temp Pulse Resp BP Pulse Ox 98.3 F 96 H 18 259/165 99 11/16/19 11:17 11/16/19 11:17 11/16/19 11:17 11/16/19 11:17 11/16/19 11:17 - General Appearance General appearance: well-developed, well-nourished, appears stated age EENT: ATNC, PERRL, mucous membranes moist Neck: Present: neck supple Respiratory: Clear to Ascultation Heart: regular, S1S2 Gastrointestinal: Present: normoactive bowel sounds Integumentary: no rash, other (no edema ) Neurologic: no focal deficit, alert and oriented x3, strength 5/5, CN 3-12 intact Psychiatric: mood/affect appropriate, cooperative Results - Lab Results 11/17/19 06:14 11/17/19 06:14 Most recent lab results Calcium 9.1 mg/dL (8.4-10.2) 11/17/19 06:14 Assessment and Plan - Patient Problems (1) Acute kidney injury Current Visit: Yes Status: Acute Plan to address problem: BENSON most likely secondary to pre-renal azotemia in the setting of nausea, vomiting, along with chronic NSAIDS use. Progressive CKD in the setting of uncontrolled HTN/hypertensive nephrosclerosis possible, since renal US showed echogenic b/l kidneys suggestive of medical renal disease. Check UA, urine lytes, urine P/C ratio, urine eos. Avoid nephrotoxins, NSAIDs, IV contrast. no acute indication for renal replacement therapy at present. Will monitor lytes/renal parameters closely and make further recommendations. (2) Accelerated hypertension Current Visit: Yes Status: Acute Plan to address problem: monitor BP on current BP meds. Will add spironolactone 25mg po bid in AM. (3) Hypokalemia Current Visit: Yes Status: Acute Plan to address problem: K supplementation with K Dur. Start Spironolactone (4) Nausea & vomiting Current Visit: Yes Status: Acute Plan to address problem: pt with chronic NSAIDS use, awaiting GI consultation.
[2019-11-18] MEDS: hydrALAZINE 25 MG TAB PO SCH ×4 (00:31→21:36)
[2019-11-18] MEDS ORDERED: POTASSIUM CHLORIDE ER 20 MEQ TAB PO ONE (08:00)
--- NOTE | 2019-11-18 09:00 | Progress Note ---
Assessment and Plan Assessment and plan: Patient is a 44-year-old man with a history of tobacco dependency and daily marijuana use who presented to [facility] ED with n/v off and on x 2 weeks then developed coffee ground emesis/bloody emesis. He was found to have severe hypertension requiring IV Cardene drip and ICU admission. Cr was found to be 3.0 without history of any kidney problems that he is aware of. * CT abdomen and pelvis 1. No acute abnormality. A nonemergent renal protocol CT with IV contrast could be considered for further evaluation of the small right renal cyst, when the patient is able. Malignant Hypertension weaned off IV Cardene drip, started oral medications, Nephrology added Aldactone, I added Imdur, already on labetalol, norvasc. No kristen/arb due to Renal dysfunction, No clonidine/bb due to already on labetatol. No diurectic due to renal dysfunction and very low potassium Hematemesis and intractable nausea vomiting Differential diagnosis include but not limited to: peptic ulcer disease, gastritis, the bleeding started 2 weeks after the vomiting so patient may have Jenny-Houston tears. Given that the patient admits to daily marijuana abuse and frequent showering when he feels sick, the patient may be suffering from cannabinoid hyperemesis syndrome, but need to exclude a functional diagnosis first. GI consulted, PPI, input noted Marijuana abuse and Tobacco abuse/dependence Smoking cessation counseling ARF, vasomotor nephropathy, poa Patient has not seen a doctor in many years and this may be his baseline creatinine, trial of IV fluids, nephrology consult Renal u/s reviewed Hypokalemia Was repleted, recheck in a.m. DVT prophylaxis with SCDs Disposition: continue inpatient care, anticipated d/c tomorrow once BP controlled. Hold today due to the addition of multiple bp meds. Awaiting transfer out of ICU History Interval history: Patient was seen and examined. Follow-up on current diagnosis uncontrolled hypertension. Overnight uneventful as no events directly reported to me. Patient denies any chest pain, shortness breath, nausea/vomiting or severe headaches. Imaging, nursing note, chart, labs and old chart reviewed. Discussed with patient. Hospitalist Physical - Physical exam Narrative exam: Gen: WDWN, NAD, Awake, Alert, Orientated HEENT: NCAT, EOMI, PERRL, OP Clear Neck: supple, no adenopathy, no thyromegaly, no JVD CVS/Heart: RRR, normal S1S2, pulses present bilaterally Chest/Lungs: CTA B, Symmetrical chest expansion, good air entry bilaterally GI/Abdomen: soft, NTND, good bowel sounds, no guarding or rebound /Bladder: no suprapubic tenderness, no CVA or paraspinal tenderness Extermity/Skin: no c/c/e, no obvious rash MSK: FROM x 4 Neuro: CN 2-12 grossly intact, no new focal deficits Psych: calm - Constitutional Vitals: Temp Pulse Resp BP Pulse Ox 98.4 F 94 H 16 161/100 98 11/18/19 04:00 11/18/19 07:48 11/18/19 04:00 11/18/19 07:48 11/18/19 06:15 General appearance: Present: no acute distress, obese Results - Labs CBC & Chem 7: 11/18/19 09:20 11/18/19 05:22 Labs: Laboratory Last Values WBC 10.1 K/mm3 (4.5-11.0) 11/17/19 06:14 RBC 4.46 M/mm3 (3.65-5.03) 11/17/19 06:14 Hgb 12.5 gm/dl (11.8-15.2) 11/17/19 06:14 Hct 37.4 % (35.5-45.6) 11/17/19 06:14 MCV 84 fl (84-94) 11/17/19 06:14 MCH 28 pg (28-32) 11/17/19 06:14 MCHC 33 % (32-34) 11/17/19 06:14 RDW 16.7 % (13.2-15.2) H 11/17/19 06:14 Plt Count 116 K/mm3 (140-440) L 11/17/19 06:14 Lymph % (Auto) 21.3 % (13.4-35.0) 11/17/19 06:14 [place] % (Auto) 12.7 % (0.0-7.3) H 11/17/19 06:14 Eos % (Auto) 0.4 % (0.0-4.3) 11/17/19 06:14 Baso % (Auto) 0.6 % (0.0-1.8) 11/17/19 06:14 Lymph # 2.1 K/mm3 (1.2-5.4) 11/17/19 06:14 [place] # 1.3 K/mm3 (0.0-0.8) H 11/17/19 06:14 Eos # 0.0 K/mm3 (0.0-0.4) 11/17/19 06:14 Baso # 0.1 K/mm3 (0.0-0.1) 11/17/19 06:14 Seg Neutrophils % 65.0 % (40.0-70.0) 11/17/19 06:14 Seg Neutrophils # 6.6 K/mm3 (1.8-7.7) 11/17/19 06:14 PT 14.6 Sec. (12.2-14.9) 11/16/19 11:37 INR 1.12 (0.87-1.13) 11/16/19 11:37 APTT 32.9 Sec. (24.2-36.6) 11/16/19 11:37 Sodium 141 mmol/L (137-145) 11/18/19 05:22 Potassium 3.3 mmol/L (3.6-5.0) L 11/18/19 05:22 Chloride 102.5 mmol/L (98-107) 11/18/19 05:22 Carbon Dioxide 21 mmol/L (22-30) L 11/18/19 05:22 Anion Gap 21 mmol/L 11/18/19 05:22 BUN 21 mg/dL (9-20) H 11/18/19 05:22 Creatinine 2.9 mg/dL (0.8-1.5) H 11/18/19 05:22 Estimated GFR 29 ml/min 11/18/19 05:22 BUN/Creatinine Ratio 7 % 11/18/19 05:22 Glucose 117 mg/dL (75-100) H 11/18/19 05:22 Calcium 9.0 mg/dL (8.4-10.2) 11/18/19 05:22 Magnesium 1.90 mg/dL (1.7-2.3) 11/18/19 05:22 Total Bilirubin 0.60 mg/dL (0.1-1.2) 11/16/19 11:37 AST 24 units/L (5-40) 11/16/19 11:37 ALT 17 units/L (7-56) 11/16/19 11:37 Alkaline Phosphatase 104 units/L (35-129) 11/16/19 11:37 Total Protein 7.3 g/dL (6.3-8.2) 11/16/19 11:37 Albumin 4.1 g/dL (3.9-5) 11/16/19 11:37 Albumin/Globulin Ratio 1.3 % 11/16/19 11:37 Lipase 30 units/L (13-60) 11/16/19 11:37 Urine Color Yellow (Yellow) 11/16/19 12:59 Urine Turbidity Clear (Clear) 11/16/19 12:59 Urine pH 6.0 (5.0-7.0) 11/16/19 12:59 Ur Specific [place] 1.011 (1.003-1.030) 11/16/19 12:59 Urine Protein 100 mg/dl mg/dL (Negative) 11/16/19 12:59 Urine Glucose (UA) Neg mg/dL (Negative) 11/16/19 12:59 Urine Ketones Neg mg/dL (Negative) 11/16/19 12:59 Urine Blood Mod (Negative) 11/16/19 12:59 Urine Nitrite Neg (Negative) 11/16/19 12:59 Urine Bilirubin Neg (Negative) 11/16/19 12:59 Urine Urobilinogen < 2.0 mg/dL (<2.0) 11/16/19 12:59 Ur Leukocyte Esterase Tr (Negative) 11/16/19 12:59 Urine WBC (Auto) 8.0 /HPF (0.0-6.0) H 11/16/19 12:59 Urine RBC (Auto) 2.0 /HPF (0.0-6.0) 11/16/19 12:59 U Epithel Cells (Auto) < 1.0 /HPF (0-13.0) 11/16/19 12:59 Active Medications - Current Medications Current Medications: Generic Name Dose Route Start Last Admin Trade Name Freq PRN Reason Stop Dose Admin Acetaminophen 650 mg 11/16/19 17:41 Tylenol PO Q4H PRN Pain MILD(1-3)/Fever >100.5/KELLEY Amlodipine Besylate 10 mg 11/18/19 10:00 Amlodipine PO QDAY FLEX Hydralazine HCl 10 mg 11/17/19 16:00 Apresoline IV Q4HR PRN Blood Pressure Hydralazine HCl 25 mg 11/17/19 22:00 11/18/19 07:48 Apresoline PO 25 mg Q8HR FLEX Administration Isosorbide Mononitrate 30 mg 11/18/19 10:00 Imdur PO QDAY FLEX Labetalol HCl 100 mg 11/17/19 12:00 11/18/19 00:32 Labetalol PO 100 mg BID FLEX Administration Metoclopramide HCl 10 mg 11/17/19 09:59 Reglan IV Q8H PRN Nausea And Vomiting Nicotine 14 mg 11/17/19 10:00 11/17/19 10:26 Habitrol TD 14 mg QDAY FLEX Administration Ondansetron HCl 4 mg 11/16/19 17:41 11/17/19 08:35 Zofran IV 4 mg Q8H PRN Administration N/V unrelieved by Reglan Pantoprazole Sodium 40 mg 11/16/19 18:00 11/17/19 10:26 Protonix PO 40 mg QDAY FLEX Administration Sodium Chloride 10 ml 11/16/19 22:00 11/18/19 00:33 Sodium Chloride Flush Syringe 10 Ml IV 10 ml BID FLEX Administration Sodium Chloride 10 ml 11/16/19 17:41 Sodium Chloride Flush Syringe 10 Ml IV PRN PRN LINE FLUSH Spironolactone 25 mg 11/18/19 09:00 Aldactone PO BID FLEX
[2019-11-18] MEDS: PANTOPRAZOLE 40 MG TAB PO SCH (09:20)
[2019-11-18] MEDS: NICOTINE 14 MG/24 HR PATCH TD SCH (09:20)
[2019-11-18] MEDS: SPIRONOLACTONE 25 MG TAB PO SCH ×3 (09:21→21:35)
[2019-11-18] MEDS: amLODIPine 10 MG TAB PO SCH (09:21)
[2019-11-18 09:48] LABS: Hematocrit 38.4 % (35.5-45.6); Hemoglobin 12.8 gm/dl (11.8-15.2)
--- NOTE | 2019-11-18 10:57 | Progress Note ---
Assessment and Plan - Patient Problems (1) Acute kidney injury Current Visit: Yes Status: Acute Plan to address problem: BENSON most likely secondary to pre-renal azotemia in the setting of nausea, vomiting, along with chronic NSAIDS use. Progressive CKD in the setting of uncontrolled HTN/hypertensive nephrosclerosis possible, since renal US showed echogenic b/l kidneys suggestive of medical renal disease. Check UA, urine lytes, urine P/C ratio, urine eos. Avoid nephrotoxins, NSAIDs, IV contrast. no acute indication for renal replacement therapy at present. Will monitor lytes/renal parameters closely and make further recommendations. (2) Accelerated hypertension Current Visit: Yes Status: Acute Plan to address problem: monitor BP on current BP meds. Added spironolactone 25mg po bid (3) Hypokalemia Current Visit: Yes Status: Acute Plan to address problem: K supplementation with K Dur. Started on Spironolactone (4) Nausea & vomiting Current Visit: Yes Status: Acute Plan to address problem: pt with chronic NSAIDS use, awaiting GI consultation. Subjective Date of service: 11/18/19 Principal diagnosis: BENSON Interval history: Pt awake, alert, in no acute distress Objective - Vital Signs Vital signs: Vital Signs - 12hr 11/17/19 11/17/19 11/17/19 23:00 23:15 23:23 Temperature 98.8 F Pulse Rate 97 H 92 H Pulse Rate [ From Monitor] Pulse Rate [ Right Dorsalis Pedis] Respiratory Rate Blood Pressure 161/92 148/101 O2 Sat by Pulse 93 97 Oximetry 11/17/19 11/17/19 11/18/19 23:31 23:45 00:00 Temperature Pulse Rate 97 H 97 H Pulse Rate [ 104 H From Monitor] Pulse Rate [ Right Dorsalis Pedis] Respiratory 22 Rate Blood Pressure 202/116 196/121 O2 Sat by Pulse 94 97 97 Oximetry 11/18/19 11/18/19 11/18/19 00:01 00:15 00:30 Temperature Pulse Rate 94 H 98 H 90 Pulse Rate [ From Monitor] Pulse Rate [ Right Dorsalis Pedis] Respiratory Rate Blood Pressure 156/100 207/121 159/89 O2 Sat by Pulse 96 95 93 Oximetry 11/18/19 11/18/19 11/18/19 00:31 00:32 00:45 Temperature Pulse Rate 96 H 95 H 92 H Pulse Rate [ From Monitor] Pulse Rate [ Right Dorsalis Pedis] Respiratory Rate Blood Pressure 159/89 159/89 O2 Sat by Pulse 98 Oximetry 11/18/19 11/18/19 11/18/19 01:00 01:15 01:31 Temperature Pulse Rate 95 H 85 79 Pulse Rate [ From Monitor] Pulse Rate [ Right Dorsalis Pedis] Respiratory Rate Blood Pressure 159/89 159/89 159/89 O2 Sat by Pulse 90 97 96 Oximetry 11/18/19 11/18/19 11/18/19 01:45 02:01 02:15 Temperature Pulse Rate 83 87 82 Pulse Rate [ From Monitor] Pulse Rate [ Right Dorsalis Pedis] Respiratory Rate Blood Pressure 159/89 159/89 159/89 O2 Sat by Pulse 95 98 96 Oximetry 11/18/19 11/18/19 11/18/19 02:31 02:45 03:01 Temperature Pulse Rate 77 85 87 Pulse Rate [ From Monitor] Pulse Rate [ Right Dorsalis Pedis] Respiratory Rate Blood Pressure 159/89 135/87 135/87 O2 Sat by Pulse 96 94 97 Oximetry 11/18/19 11/18/19 11/18/19 03:15 03:31 03:45 Temperature Pulse Rate 86 95 H 90 Pulse Rate [ From Monitor] Pulse Rate [ Right Dorsalis Pedis] Respiratory Rate Blood Pressure 135/87 135/87 135/87 O2 Sat by Pulse 96 94 98 Oximetry 11/18/19 11/18/19 11/18/19 04:00 04:15 04:31 Temperature 98.4 F Pulse Rate 86 83 92 H Pulse Rate [ 106 H From Monitor] Pulse Rate [ 70 Right Dorsalis Pedis] Respiratory 16 Rate Blood Pressure 157/99 157/99 157/99 O2 Sat by Pulse 94 95 98 Oximetry 11/18/19 11/18/19 11/18/19 04:45 05:00 05:15 Temperature Pulse Rate 96 H 83 88 Pulse Rate [ From Monitor] Pulse Rate [ Right Dorsalis Pedis] Respiratory Rate Blood Pressure 157/99 157/99 157/99 O2 Sat by Pulse 99 99 97 Oximetry 11/18/19 11/18/19 11/18/19 05:31 05:45 06:01 Temperature Pulse Rate 88 87 83 Pulse Rate [ From Monitor] Pulse Rate [ Right Dorsalis Pedis] Respiratory Rate Blood Pressure 157/99 157/99 157/99 O2 Sat by Pulse 96 97 98 Oximetry 11/18/19 11/18/19 11/18/19 06:15 07:01 07:48 Temperature Pulse Rate 86 94 H 94 H Pulse Rate [ From Monitor] Pulse Rate [ Right Dorsalis Pedis] Respiratory Rate Blood Pressure 157/99 161/100 161/100 O2 Sat by Pulse 98 99 Oximetry 11/18/19 11/18/19 11/18/19 08:00 09:00 09:20 Temperature 97.6 F Pulse Rate 91 H 91 H 104 H Pulse Rate [ From Monitor] Pulse Rate [ Right Dorsalis Pedis] Respiratory Rate Blood Pressure 165/100 165/100 165/100 O2 Sat by Pulse 99 99 Oximetry 11/18/19 11/18/19 11/18/19 09:21 09:31 10:01 Temperature Pulse Rate 96 H 95 H 85 Pulse Rate [ From Monitor] Pulse Rate [ Right Dorsalis Pedis] Respiratory Rate Blood Pressure 165/100 165/100 165/100 O2 Sat by Pulse 98 97 Oximetry - General Appearance General appearance: well-developed, well-nourished, appears stated age EENT: ATNC, PERRL, mucous membranes moist Neck: no JVD Respiratory: Present: Clear to Ascultation Cardiology: regular, S1S2 Gastrointestinal: normoactive bowel sounds Integumentary: no rash Neurologic: no focal deficit, alert and oriented x3, strength 5/5, CN 3-12 intact Psychiatric: mood/affect appropriate, cooperative - Lab 11/18/19 09:20 11/18/19 05:22 Most recent lab results Calcium 9.0 mg/dL (8.4-10.2) 11/18/19 05:22 Magnesium 1.90 mg/dL (1.7-2.3) 11/18/19 05:22 Medications & Allergies - Medications Allergies/Adverse Reactions: Allergies No Known Allergies Allergy (Unverified 11/16/19 11:13) Home Medications: Home Medications Medication Instructions Recorded Confirmed Last Taken Type No Known Home Medications [No 11/16/19 11/16/19 Unknown History Reported Home Medications] Active Medications: Generic Name Dose Route Start Last Admin Trade Name Freq PRN Reason Stop Dose Admin Acetaminophen 650 mg 11/16/19 17:41 Tylenol PO Q4H PRN Pain MILD(1-3)/Fever >100.5/KELLEY Amlodipine Besylate 10 mg 11/18/19 10:00 11/18/19 09:21 Amlodipine PO 10 mg QDAY FLEX Administration Hydralazine HCl 10 mg 11/17/19 16:00 Apresoline IV Q4HR PRN Blood Pressure Hydralazine HCl 25 mg 11/17/19 22:00 11/18/19 07:48 Apresoline PO 25 mg Q8HR FLEX Administration Isosorbide Mononitrate 30 mg 11/18/19 10:00 11/18/19 09:20 Imdur PO 30 mg QDAY FLEX Administration Labetalol HCl 100 mg 11/17/19 12:00 11/18/19 09:21 Labetalol PO 100 mg BID FLEX Administration Metoclopramide HCl 10 mg 11/17/19 09:59 Reglan IV Q8H PRN Nausea And Vomiting Nicotine 14 mg 11/17/19 10:00 11/18/19 09:20 Habitrol TD 14 mg QDAY FLEX Administration Ondansetron HCl 4 mg 11/16/19 17:41 11/17/19 08:35 Zofran IV 4 mg Q8H PRN Administration N/V unrelieved by Reglan Pantoprazole Sodium 40 mg 11/16/19 18:00 11/18/19 09:20 Protonix PO 40 mg QDAY FLEX Administration Sodium Chloride 10 ml 11/16/19 22:00 11/18/19 09:21 Sodium Chloride Flush Syringe 10 Ml IV 10 ml BID FLEX Administration Sodium Chloride 10 ml 11/16/19 17:41 Sodium Chloride Flush Syringe 10 Ml IV PRN PRN LINE FLUSH Spironolactone 25 mg 11/18/19 09:00 11/18/19 09:22 Aldactone PO Not Given BID FLEX
[2019-11-18 11:58] LABS: Creatinine,Urine 56.4 mg/dL (0.1-20.0)
--- NOTE | 2019-11-18 12:36 | Gastroenterology Progress Note ---
<NATALI HE - Last Filed: 11/18/19 12:46> Assessment and Plan 1. Intractable nausea/vomiting -could be 2/2 degree of hypertension vs hyperemesis from marijuana, vs other etiology -now resolved. Tolerating diet. 2. Hematemesis - prior to admission -H/H normal and has remained stable;no active signs of bleeding overnight or th is am -no plan for EGD at this time, unless overt bleeding develops -continue PPI and supportive care -recommend patient be d/c home on PPI with f/u in clinic in ~2 weeks -will sign off, please call if needed Subjective Date of service: 11/18/19 Principal diagnosis: GI bleed Interval history: Patient sitting in bedside chair this am w/o acute distress. Reports feeling lakeisha with vomiting now resolved and no active signs of bleeding. Tolerating diet. Objective - Constitutional Vitals: Temp Pulse Resp BP Pulse Ox 97.6 F 82 16 142/100 100 11/18/19 08:00 11/18/19 12:01 11/18/19 04:00 11/18/19 12:01 11/18/19 11:31 General appearance: no acute distress - EENT Eyes: PERRL, EOM intact ENT: hearing intact - Respiratory Respiratory effort: normal - Cardiovascular Rhythm: regular - Gastrointestinal General gastrointestinal: Present: soft, non-tender, non-distended, normal bowel sounds - Neurologic Neurological: alert and oriented x3 - Labs CBC & Chem 7: 11/18/19 09:20 11/18/19 05:22 Labs: Laboratory Results - last 24 hr 11/18/19 11/18/19 11/18/19 05:22 09:20 10:30 Hgb 12.8 Hct 38.4 Sodium 141 Potassium 3.3 L Chloride 102.5 Carbon Dioxide 21 L Anion Gap 21 BUN 21 H Creatinine 2.9 H Estimated GFR 29 BUN/Creatinine Ratio 7 Glucose 117 H Calcium 9.0 Magnesium 1.90 Urine Creatinine 56.4 H Urine Sodium 100 Urine Total Protein 80 H <MARK ESCOBAR - Last Filed: 11/18/19 20:14> Assessment and Plan Pt seen and examined. agree with note above. Objective - Constitutional Vitals: Temp Pulse Resp BP Pulse Ox 98.2 F 93 H 20 137/85 96 11/18/19 15:56 11/18/19 16:07 11/18/19 15:56 11/18/19 16:07 11/18/19 15:56 - Labs CBC & Chem 7: 11/18/19 09:20 11/18/19 05:22 Labs: Laboratory Results - last 24 hr 11/18/19 11/18/19 11/18/19 05:22 09:20 10:30 Hgb 12.8 Hct 38.4 Sodium 141 Potassium 3.3 L Chloride 102.5 Carbon Dioxide 21 L Anion Gap 21 BUN 21 H Creatinine 2.9 H Estimated GFR 29 BUN/Creatinine Ratio 7 Glucose 117 H POC Glucose Calcium 9.0 Magnesium 1.90 Urine Creatinine 56.4 H Urine Sodium 100 Urine Total Protein 80 H 11/18/19 13:03 Hgb Hct Sodium Potassium Chloride Carbon Dioxide Anion Gap BUN Creatinine Estimated GFR BUN/Creatinine Ratio Glucose POC Glucose 142 H Calcium Magnesium Urine Creatinine Urine Sodium Urine Total Protein
[2019-11-18] MEDS ORDERED: SODIUM CHLORIDE 0.9% 1000 ML 1,000 ML IV ONE (13:05)
[2019-11-18] MEDS ORDERED: SODIUM CHLORIDE 0.9% 1000 ML 1,000 ML ONE (13:06)
--- NOTE | 2019-11-18 13:29 | Progress Note ---
Assessment and Plan 44 y/o male with Hypertensive Emergency and renal failure 1. Continue all PO meds. 2. Will give one liter of NS bolus given positive orthostatics, then recheck. 3. Reviewed GI note 4. FOllow up any new renal recs from today. 5. Smoking cessation, discussed at bedside. 6. Weight loss 7. Should be screened for diabetes and hyperlipidemia while here. 8. If ortho improves, can transfer. Subjective Date of service: 11/18/19 Principal diagnosis: GI bleed Interval history: Had some dizziness and lightheadedness. Checked orthostatics and he tilted. Objective - Constitutional Vitals: Vital Signs - 12hr 11/18/19 11/18/19 11/18/19 01:31 01:45 02:01 Temperature Pulse Rate 79 83 87 Pulse Rate [ From Monitor] Pulse Rate [ Right Dorsalis Pedis] Respiratory Rate Blood Pressure 159/89 159/89 159/89 O2 Sat by Pulse 96 95 98 Oximetry 11/18/19 11/18/19 11/18/19 02:15 02:31 02:45 Temperature Pulse Rate 82 77 85 Pulse Rate [ From Monitor] Pulse Rate [ Right Dorsalis Pedis] Respiratory Rate Blood Pressure 159/89 159/89 135/87 O2 Sat by Pulse 96 96 94 Oximetry 11/18/19 11/18/19 11/18/19 03:01 03:15 03:31 Temperature Pulse Rate 87 86 95 H Pulse Rate [ From Monitor] Pulse Rate [ Right Dorsalis Pedis] Respiratory Rate Blood Pressure 135/87 135/87 135/87 O2 Sat by Pulse 97 96 94 Oximetry 11/18/19 11/18/19 11/18/19 03:45 04:00 04:15 Temperature 98.4 F Pulse Rate 90 86 83 Pulse Rate [ 106 H From Monitor] Pulse Rate [ 70 Right Dorsalis Pedis] Respiratory 16 Rate Blood Pressure 135/87 157/99 157/99 O2 Sat by Pulse 98 94 95 Oximetry 11/18/19 11/18/19 11/18/19 04:31 04:45 05:00 Temperature Pulse Rate 92 H 96 H 83 Pulse Rate [ From Monitor] Pulse Rate [ Right Dorsalis Pedis] Respiratory Rate Blood Pressure 157/99 157/99 157/99 O2 Sat by Pulse 98 99 99 Oximetry 11/18/19 11/18/19 11/18/19 05:15 05:31 05:45 Temperature Pulse Rate 88 88 87 Pulse Rate [ From Monitor] Pulse Rate [ Right Dorsalis Pedis] Respiratory Rate Blood Pressure 157/99 157/99 157/99 O2 Sat by Pulse 97 96 97 Oximetry 11/18/19 11/18/19 11/18/19 06:01 06:15 07:01 Temperature Pulse Rate 83 86 94 H Pulse Rate [ From Monitor] Pulse Rate [ Right Dorsalis Pedis] Respiratory Rate Blood Pressure 157/99 157/99 161/100 O2 Sat by Pulse 98 98 99 Oximetry 11/18/19 11/18/19 11/18/19 07:48 08:00 09:00 Temperature 97.6 F Pulse Rate 94 H 91 H 91 H Pulse Rate [ From Monitor] Pulse Rate [ Right Dorsalis Pedis] Respiratory Rate Blood Pressure 161/100 165/100 165/100 O2 Sat by Pulse 99 99 Oximetry 11/18/19 11/18/19 11/18/19 09:20 09:21 09:31 Temperature Pulse Rate 104 H 96 H 95 H Pulse Rate [ From Monitor] Pulse Rate [ Right Dorsalis Pedis] Respiratory Rate Blood Pressure 165/100 165/100 165/100 O2 Sat by Pulse 98 Oximetry 11/18/19 11/18/19 11/18/19 10:00 10:01 10:31 Temperature Pulse Rate 82 85 82 Pulse Rate [ From Monitor] Pulse Rate [ Right Dorsalis Pedis] Respiratory Rate Blood Pressure 165/100 150/109 O2 Sat by Pulse 97 98 Oximetry 11/18/19 11/18/19 11/18/19 11:01 11:31 12:00 Temperature 97.6 F Pulse Rate 82 85 Pulse Rate [ From Monitor] Pulse Rate [ Right Dorsalis Pedis] Respiratory Rate Blood Pressure 150/109 150/109 O2 Sat by Pulse 99 100 Oximetry 11/18/19 12:01 Temperature Pulse Rate 82 Pulse Rate [ From Monitor] Pulse Rate [ Right Dorsalis Pedis] Respiratory Rate Blood Pressure 142/100 O2 Sat by Pulse Oximetry - Labs CBC & Chem 7: 11/18/19 09:20 11/18/19 05:22 Labs: Abnormal lab results 11/18/19 11/18/19 11/18/19 Range/Units 05:22 10:30 13:03 Potassium 3.3 L (3.6-5.0) mmol/L Carbon Dioxide 21 L (22-30) mmol/L BUN 21 H (9-20) mg/dL Creatinine 2.9 H (0.8-1.5) mg/dL Glucose 117 H (75-100) mg/dL POC Glucose 142 H (70-105) Urine Creatinine 56.4 H (0.1-20.0) mg/dL Urine Total Protein 80 H (5-11.8) mg/dL Medications & Allergies - Medications Allergies/Adverse Reactions: Allergies No Known Allergies Allergy (Unverified 11/16/19 11:13) Home Medications: Home Medications Medication Instructions Recorded Confirmed Last Taken Type No Known Home Medications [No 11/16/19 11/16/19 Unknown History Reported Home Medications] Active Medications: Generic Name Dose Route Start Last Admin Trade Name Freq PRN Reason Stop Dose Admin Acetaminophen 650 mg 11/16/19 17:41 Tylenol PO Q4H PRN Pain MILD(1-3)/Fever >100.5/KELLEY Amlodipine Besylate 10 mg 11/18/19 10:00 11/18/19 09:21 Amlodipine PO 10 mg QDAY FLEX Administration Hydralazine HCl 10 mg 11/17/19 16:00 Apresoline IV Q4HR PRN Blood Pressure Hydralazine HCl 25 mg 11/17/19 22:00 11/18/19 07:48 Apresoline PO 25 mg Q8HR FLEX Administration Isosorbide Mononitrate 30 mg 11/18/19 10:00 11/18/19 09:20 Imdur PO 30 mg QDAY FLEX Administration Labetalol HCl 100 mg 11/17/19 12:00 11/18/19 09:21 Labetalol PO 100 mg BID FLEX Administration Metoclopramide HCl 10 mg 11/17/19 09:59 Reglan IV Q8H PRN Nausea And Vomiting Nicotine 14 mg 11/17/19 10:00 11/18/19 09:20 Habitrol TD 14 mg QDAY FLEX Administration Ondansetron HCl 4 mg 11/16/19 17:41 11/17/19 08:35 Zofran IV 4 mg Q8H PRN Administration N/V unrelieved by Reglan Pantoprazole Sodium 40 mg 11/16/19 18:00 11/18/19 09:20 Protonix PO 40 mg QDAY FLEX Administration Sodium Chloride 10 ml 11/16/19 22:00 11/18/19 09:21 Sodium Chloride Flush Syringe 10 Ml IV 10 ml BID FLEX Administration Sodium Chloride 10 ml 11/16/19 17:41 Sodium Chloride Flush Syringe 10 Ml IV PRN PRN LINE FLUSH Spironolactone 25 mg 11/18/19 09:00 11/18/19 09:22 Aldactone PO Not Given BID FLEX
[2019-11-19] MEDS: hydrALAZINE 25 MG TAB PO SCH ×2 (05:32→14:37)
[2019-11-19] MEDS ORDERED: METOCLOPRAMIDE 10 MG/2 ML INJ IV PRN (10:00)
[2019-11-19] MEDS: PANTOPRAZOLE 40 MG TAB PO SCH (10:36)
[2019-11-19] MEDS: SPIRONOLACTONE 25 MG TAB PO SCH (10:36)
[2019-11-19] MEDS: amLODIPine 10 MG TAB PO SCH (10:36)
[2019-11-19] MEDS: NICOTINE 14 MG/24 HR PATCH TD SCH (10:37)
[2019-11-19] MEDS ORDERED: LISINOPRIL 40 MG TAB PO SCH (11:00)
--- NOTE | 2019-11-19 11:00 | Discharge Summary ---
Providers - Providers Date of Admission: 11/16/19 14:49 Attending physician: NICOLE STOLL MD 11/16/19 17:43 Consult to Physician [CONS] Routine Comment: Consulting Provider: EDGAR VIDAL Physician Instructions: Reason For Exam: gi bleed Consult to Physician [CONS] Routine Comment: Consulting Provider: KATHY CUELLO Physician Instructions: Reason For Exam: olesya Primary care physician: ADMINISTRATIVE SERVICES SPECIALIST Hospitalization Condition: Serious Hospital course: hrombocytopenia, appears chronic and stable, no a/c, repeat CBC in AM, outpatient workup Original Note: Assessment and Plan Assessment and plan: Patient is a 44-year-old man with a history of tobacco dependency and daily marijuana use who presented to [facility] ED with n/v off and on x 2 weeks then developed coffee ground emesis/bloody emesis. He was found to have severe hypertension requiring IV Cardene drip and ICU admission. Cr was found to be 3.0 without history of any kidney problems that he is aware of. * CT abdomen and pelvis 1. No acute abnormality. A nonemergent renal protocol CT with IV contrast could be considered for further evaluation of the small right renal cyst, when the patient is able. Malignant Hypertension weaned off IV Cardene drip, started oral medications, Nephrology added Aldactone, I added Imdur, already on labetalol, norvasc. No kristen/arb due to Renal dysfunction, No clonidine/bb due to already on labetatol. No diurectic due to renal dysfunction and very low potassium Hematemesis and intractable nausea vomiting Differential diagnosis include but not limited to: peptic ulcer disease, gastritis, the bleeding started 2 weeks after the vomiting so patient may have Jenny-[place] tears. Given that the patient admits to daily marijuana abuse and frequent showering when he feels sick, the patient may be suffering from cannabinoid hyperemesis syndrome, but need to exclude a functional diagnosis first. GI consulted, PPI, input noted Marijuana abuse and Tobacco abuse/dependence Smoking cessation counseling ARF, vasomotor nephropathy, poa Patient has not seen a doctor in many years and this may be his baseline creatinine, trial of IV fluids, nephrology consult Renal u/s reviewed Hypokalemia Was repleted, recheck in a.m. DVT prophylaxis with SCDs Disposition: continue inpatient care, anticipated d/c tomorrow once BP controlled. Hold today due to the addition of multiple bp meds. Awaiting transfer out of ICU Disposition: DC-01 TO HOME OR SELFCARE Time spent for discharge: 33 mins Core Measure Documentation - Palliative Care Palliative Care/ Comfort Measures: Not Applicable - Core Measures Any of the following diagnoses?: none Exam - Constitutional Vitals: Temp Pulse Resp BP Pulse Ox 98.6 F 96 H 22 162/105 98 11/19/19 04:56 11/19/19 10:56 11/19/19 04:56 11/19/19 10:56 11/19/19 04:56 General appearance: Present: no acute distress, well-nourished - EENT Eyes: Present: PERRL ENT: hearing intact, clear oral mucosa - Neck Neck: Present: supple, normal ROM - Respiratory Respiratory effort: normal Respiratory: bilateral: CTA - Cardiovascular Heart Sounds: Present: S1 & S2. Absent: rub, click - Extremities Extremities: pulses symmetrical, No edema Peripheral Pulses: within normal limits - Abdominal General gastrointestinal: Present: soft, non-tender, non-distended, normal bowel sounds Male genitourinary: Present: normal - Integumentary Integumentary: Present: clear, warm, dry - Musculoskeletal Musculoskeletal: gait normal, strength equal bilaterally - Psychiatric Psychiatric: appropriate mood/affect, intact judgment & insight - Neurologic Neurologic: CNII-XII intact, moves all extremities Plan Follow up with: PRIMARY CARE, [Primary Care Provider] - 3-5 Days Prescriptions: Spironolactone [Aldactone] 25 mg PO BID #60 tablet amLODIPine 10 mg PO QDAY #30 tablet hydrALAZINE [Apresoline TAB] 25 mg PO Q8HR #90 tablet Nicotine [Habitrol] 14 mg TD QDAY #30 patch ISOSORBIDE MONOnitrate [Imdur ER] 30 mg PO QDAY #30 tablet labetaloL [Labetalol 100mg TAB] 100 mg PO BID #60 tablet Pantoprazole [Protonix TAB] 40 mg PO QDAY #30 tablet lisinopriL [Zestril TAB] 40 mg PO QDAY #30 tablet
--- NOTE | 2019-11-19 11:20 | Progress Note ---
Assessment and Plan - Patient Problems (1) Acute kidney injury Current Visit: Yes Status: Acute Plan to address problem: BENSON most likely secondary to pre-renal azotemia in the setting of nausea, vomiting, along with chronic NSAIDS use. Progressive CKD in the setting of uncontrolled HTN/hypertensive nephrosclerosis possible, since renal US showed echogenic b/l kidneys suggestive of medical renal disease. urine P/C ratio > 1g/g. Avoid nephrotoxins, NSAIDs, IV contrast. no acute indication for renal replacement therapy at present. otherwise stable for discharge from renal stand point with outpatient CKD f/u in 2 weeks (2) Accelerated hypertension Current Visit: Yes Status: Acute Plan to address problem: monitor BP on current BP meds. (3) Hypokalemia Current Visit: Yes Status: Acute Plan to address problem: K supplementation with K Dur. Spironolactone was added (4) Nausea & vomiting Current Visit: Yes Status: Acute Plan to address problem: pt with chronic NSAIDS use, awaiting GI consultation. Subjective Date of service: 11/19/19 Principal diagnosis: GI bleed Interval history: Pt awake, alert, in no acute distress Objective - Vital Signs Vital signs: Vital Signs - 12hr 11/18/19 11/19/19 11/19/19 23:32 04:56 05:32 Temperature 98.6 F 98.6 F Pulse Rate 96 H 98 H 98 H Respiratory 22 22 Rate Blood Pressure 161/78 161/91 161/91 O2 Sat by Pulse 100 98 Oximetry 11/19/19 11/19/19 11/19/19 10:34 10:35 10:36 Temperature Pulse Rate 97 H 96 H 96 H Respiratory 20 Rate Blood Pressure 162/105 162/105 162/105 O2 Sat by Pulse 97 Oximetry 11/19/19 11/19/19 10:37 10:56 Temperature Pulse Rate 96 H 96 H Respiratory Rate Blood Pressure 162/105 162/105 O2 Sat by Pulse Oximetry - General Appearance General appearance: well-developed, well-nourished, appears stated age EENT: ATNC, PERRL, mucous membranes moist Neck: no JVD Respiratory: Present: Clear to Ascultation Cardiology: regular, S1S2 Gastrointestinal: normoactive bowel sounds Integumentary: no rash, other (no edema ) Neurologic: no focal deficit, alert and oriented x3, strength 5/5, CN 3-12 intact Psychiatric: mood/affect appropriate, cooperative - Lab 11/18/19 09:20 11/18/19 05:22 Most recent lab results Calcium 9.0 mg/dL (8.4-10.2) 11/18/19 05:22 Magnesium 1.90 mg/dL (1.7-2.3) 11/18/19 05:22 Urine Creatinine 56.4 mg/dL (0.1-20.0) H 11/18/19 10:30 Urine Sodium 100 mmol/L 11/18/19 10:30 Urine Total Protein 80 mg/dL (5-11.8) H 11/18/19 10:30 Medications & Allergies - Medications Allergies/Adverse Reactions: Allergies No Known Allergies Allergy (Unverified 11/16/19 11:13) Home Medications: Home Medications Medication Instructions Recorded Confirmed Last Taken Type ISOSORBIDE MONOnitrate [Imdur ER] 30 mg PO QDAY #30 tablet 11/19/19 Unknown Rx Nicotine [Habitrol] 14 mg TD QDAY #30 patch 11/19/19 Unknown Rx Pantoprazole [Protonix TAB] 40 mg PO QDAY #30 tablet 11/19/19 Unknown Rx Spironolactone [Aldactone] 25 mg PO BID #60 tablet 11/19/19 Unknown Rx amLODIPine 10 mg PO QDAY #30 tablet 11/19/19 Unknown Rx hydrALAZINE [Apresoline TAB] 25 mg PO Q8HR #90 tablet 11/19/19 Unknown Rx labetaloL [Labetalol 100mg TAB] 100 mg PO BID #60 tablet 11/19/19 Unknown Rx lisinopriL [Zestril TAB] 40 mg PO QDAY #30 tablet 11/19/19 Unknown Rx Active Medications: Generic Name Dose Route Start Last Admin Trade Name Freq PRN Reason Stop Dose Admin Acetaminophen 650 mg 11/16/19 17:41 Tylenol PO Q4H PRN Pain MILD(1-3)/Fever >100.5/KELLEY Amlodipine Besylate 10 mg 11/18/19 10:00 11/19/19 10:36 Amlodipine PO 10 mg QDAY FLEX Administration Hydralazine HCl 10 mg 11/17/19 16:00 Apresoline IV Q4HR PRN Blood Pressure Hydralazine HCl 25 mg 11/17/19 22:00 11/19/19 05:32 Apresoline PO 25 mg Q8HR FLEX Administration Isosorbide Mononitrate 30 mg 11/18/19 10:00 11/19/19 10:37 Imdur PO 30 mg QDAY FLEX Administration Labetalol HCl 100 mg 11/17/19 12:00 11/19/19 10:35 Labetalol PO 100 mg BID FLEX Administration Lisinopril 40 mg 11/19/19 11:00 11/19/19 10:56 Zestril PO 40 mg QDAY FLEX Administration Metoclopramide HCl 5 mg 11/19/19 10:00 Reglan IV Q8H PRN Nausea And Vomiting Nicotine 14 mg 11/17/19 10:00 11/19/19 10:37 Habitrol TD 14 mg QDAY FLEX Administration Ondansetron HCl 4 mg 11/16/19 17:41 11/17/19 08:35 Zofran IV 4 mg Q8H PRN Administration N/V unrelieved by Reglan Pantoprazole Sodium 40 mg 11/16/19 18:00 11/19/19 10:36 Protonix PO 40 mg QDAY FLEX Administration Sodium Chloride 10 ml 11/16/19 22:00 11/19/19 10:40 Sodium Chloride Flush Syringe 10 Ml IV Not Given BID FLEX Sodium Chloride 10 ml 11/16/19 17:41 Sodium Chloride Flush Syringe 10 Ml IV PRN PRN LINE FLUSH Spironolactone 25 mg 11/18/19 09:00 11/19/19 10:36 Aldactone PO 25 mg BID FLEX Administration
[2019-11-19 12:46] LABS: Hematocrit 38.4 % (35.5-45.6); Hemoglobin 12.6 gm/dl (11.8-15.2); Mean Corpuscular HGB Conc 33 % (32-34); Mean Corpuscular Volume 85 fl (84-94); Platelet Count 168 K/mm3 (140-440); Red Blood Count 4.54 M/mm3 (3.65-5.03); Red Cell Distribution Width 16.2 % (13.2-15.2)
[2019-11-19 13:02] LABS: Calcium 9.3 mg/dL (8.4-10.2)
[2019-11-19 14:38] VITALS: BP 114/57
== END 2019-11-19 18:15 | disposition home or self-care (01) | DRG 304 ==
LOC: ED 11:06 → CC1 14:49 → 3A 11-18 14:45
PROVIDERS: ADMIT Internal Medicine; ATTEND Internal Medicine
DX: I16.1 Hypertensive emergency (principal); N17.0 Acute kidney failure with tubular necrosis; K92.0 Hematemesis; I10 Essential (primary) hypertension; E87.6 Hypokalemia; F12.10 Cannabis abuse, uncomplicated; D69.6 Thrombocytopenia, unspecified; F17.200 Nicotine dependence, unspecified, uncomplicated; N28.1 Cyst of kidney, acquired; Z71.6 Tobacco abuse counseling; Z82.49 Family history of ischemic heart disease and other diseases of the circulatory system
CPT/HCPCS: 36415; 74176; 76770; 80048; 80053; 81001; 82570; 82962; 83690; 83735; 84156; 84300; 85014; 85018; 85025; 85027; 85610; 85730; 99406; G0378; J0360; J2405; J7030; J7050

== ENCOUNTER 2021-09-29 05:41 | Day surgery (SDC) | payer MEDICAID ==
[~2021-09-29 05:41] MED LIST: HEPARIN 10,000 UNITS/10 ML VIAL IV ONE; SODIUM CHLORIDE 0.9% 500 ML IVPB IRRIGATION ONE; SODIUM CHLORIDE 0.9% IRR 1,500 ML BOTTLE IR ONE
[2021-09-29] MEDS ORDERED: ceFAZolin/STERILE WATER 2 GM/20 ML SYRINGE IV NR (06:00)
[2021-09-29] MEDS ORDERED: BACTERIOSTATIC SODIUM CHLORIDE 0.9% 30 ML VIAL INFILTRATI ONE (06:29)
[2021-09-29] MEDS ORDERED: SODIUM CHLORIDE 0.9% 1000 ML 1,000 ML IV SCH (06:30)
[2021-09-29 07:04] LABS: Hematocrit 33.8 % (35.5-45.6); Hemoglobin 10.6 gm/dl (11.8-15.2); Mean Corpuscular HGB Conc 31 % (32-34); Mean Corpuscular Volume 83 fl (84-94); Platelet Count 258 K/mm3 (140-440); Red Blood Count 4.06 M/mm3 (3.65-5.03); Red Cell Distribution Width 19.6 % (13.2-15.2)
[2021-09-29] MEDS ORDERED: BUPIVACAINE/PF (0.5%) 5 MG/1 ML 30 ML VIAL INFILTRATI ONE (07:21)
[2021-09-29] MEDS ORDERED: propofoL 200 MG/20 ML VIAL IV ONE (07:22)
[2021-09-29 07:23] LABS: Calcium 9.3 mg/dL (8.4-10.2)
[2021-09-29] MEDS ORDERED: fentaNYL 100 MCG/2 ML INJ IV NR (07:26)
[2021-09-29] MEDS ORDERED: ONDANSETRON 4 MG/2 ML INJ IV PRN (07:26)
[2021-09-29] MEDS ORDERED: HYDROmorphone 1 MG/1 ML INJ IV PRN ×2 (07:26)
--- NOTE | 2021-09-29 07:27 | Anesthesia Day of Surgery ---
Anesthesia Day of Surgery - Day of Surgery Patient Examined: Yes Patient H&P Reviewed: Yes Patient is NPO: Yes
--- NOTE | 2021-09-29 07:30 | Anesthesia Consultation ---
Anesthesia Consult and Med Hx Date of service: 09/29/21 - Airway Anesthetic Teeth Evaluation: Poor (Missing and loose) ROM Head & Neck: Adequate Mental/Hyoid Distance: Adequate Mallampati Class: Class II Intubation Access Assessment: Probably Good - Pre-Operative Health Status ASA Pre-Surgery Classification: ASA3 Nerve Block: IS (GA if needed) - Pulmonary Hx Smoking: Yes (FORMER SMOKER) Hx Pneumonia: Yes Hx Sleep Apnea: No (Being tested) - Cardiovascular System Hx Hypertension: Yes - Central Nervous System Hx Psychiatric Problems: No - Endocrine Hx End Stage Renal Disease: Yes (Last HD yesterday) - Hematic Hx Anemia: Yes Hx Sickle Cell Disease: No - Other Systems Hx Alcohol Use: No Hx Substance Use: Yes (SMOKES MARIJUANA EVERY 3 DAYS) Hx Cancer: No Hx Obesity: Yes
[2021-09-29] MEDS ORDERED: HEPARIN 10,000 UNITS/10 ML VIAL ONE (07:33)
[2021-09-29] MEDS ORDERED: SODIUM CHLORIDE 0.9% 500 ML 500 ML ONE (07:33)
[2021-09-29] MEDS ORDERED: rifAMPin 600 MG VIAL ONE (07:34)
[2021-09-29] MEDS ORDERED: SODIUM CHLORIDE P/F VIAL 10 ML 0 ML ONE (07:34)
[2021-09-29] MEDS ORDERED: BUPIVACAINE/PF (0.5%) 5 MG/1 ML 10 ML VIAL INFILTRATI ONE ×3 (07:34→09:13)
[2021-09-29] MEDS ORDERED: PROTAMINE SULFATE 50 MG/5 ML INJ ONE (07:35)
[2021-09-29] MEDS ORDERED: SODIUM CHLORIDE 0.9% 250ML 250 ML ONE (07:36)
[2021-09-29] MEDS ORDERED: MIDAZOLAM 2 MG/2 ML INJ IV NR (08:00)
[2021-09-29] MEDS ORDERED: fentaNYL 100 MCG/2 ML INJ ONE (08:45)
[2021-09-29] MEDS ORDERED: SODIUM CHLORIDE 0.9% 500 ML IVPB IRRIGATION ONE (09:21)
[2021-09-29] MEDS ORDERED: HEPARIN 10,000 UNITS/10 ML VIAL IV ONE (09:21)
[2021-09-29] MEDS ORDERED: SODIUM CHLORIDE 0.9% IRR 1,500 ML BOTTLE IR ONE (10:10)
--- NOTE | 2021-09-29 10:25 | Short Stay Summary ---
Short Stay Documentation Date of service: 09/29/21 Narrative H&P: See H&P - History H&P: obtained from office - Allergies and Medications Current Medications: Allergies amlodipine Allergy (Verified 09/24/21 10:39) Shortness of Breath Home Medications Medication Instructions Recorded Confirmed Last Taken Type Apixaban [Eliquis] 2.5 mg PO BID 09/24/21 09/24/21 09/28/21 History Ferric Citrate (Nf) [Auryxia] 210 mg PO BID 09/24/21 09/24/21 09/28/21 History Ferrous Sulfate [Iron 325 MG] 325 mg PO DAILY 09/24/21 09/24/21 09/28/21 History NIFEdipine [Nifedipine] 10 mg PO Q8HR 09/24/21 09/29/21 09/29/21 05:15 History labetaloL [Labetalol 100mg TAB] 200 mg PO BID 09/29/21 09/29/21 09/29/21 05:15 History Active Medications Cefazolin Sodium (Cefazolin/Sterile Water 2 Gm/20 Ml Syringe) 2 gm IV PREOP NR Stop: 09/29/21 20:00 Fentanyl (Fentanyl 100 Mcg/2 Ml Inj) 100 mcg IV ONCE NR Stop: 09/29/21 12:00 Last Admin: 09/29/21 07:44 Dose: 100 mcg Documented by: Hydromorphone HCl (Hydromorphone 1 Mg/1 Ml Inj) 0.25 mg IV Q10MIN PRN PRN Reason: Pain, Moderate (4-6) Stop: 09/29/21 23:00 Hydromorphone HCl (Hydromorphone 1 Mg/1 Ml Inj) 0.5 mg IV Q10MIN PRN PRN Reason: Pain , Severe (7-10) Stop: 09/29/21 23:00 Sodium Chloride (Nacl 0.9% 1000 Ml) 1,000 mls @ 42 mls/hr IV DIRECT FLEX Last Admin: 09/29/21 07:00 Dose: 42 mls/hr Documented by: Midazolam HCl (Midazolam 2 Mg/2 Ml Inj) 2 mg IV PREOP NR Stop: 09/29/21 23:59 Last Admin: 09/29/21 07:44 Dose: 2 mg Documented by: Ondansetron HCl (Ondansetron 4 Mg/2 Ml Inj) 4 mg IV ONCE PRN PRN Reason: Nausea And Vomiting Stop: 09/29/21 12:00 - Brief post op/procedure progress note Date of procedure: 09/29/21 Pre-op diagnosis: End-Stage Renal Disease Post-op diagnosis: same Procedure: Creation of Left Brachiocephalic Arteriovenous Fistula Anesthesia: MAC, regional Surgeon: YOUNG DURANT Estimated blood loss: minimal Pathology: none Condition: stable - Disposition Condition at discharge: Good Disposition: 01 HOME / SELF CARE / HOMELESS Short Stay Discharge Plan Activity: other (No heavy lifting with left arm for 2 weeks. You stress ball with left hand as often as possible.) Wound: open to air, keep clean and dry, other (Okay to wash the left arm wound with soap and water but do not soak in water for 2 weeks.) Follow up with: YOUNG DURANT MD [Staff Physician] - 14 Days Prescriptions: HYDROcodone/APAP 7.5-325 [Jeannette 7.5/325] 1 each PO Q6HR PRN #30 tablet PRN Reason: Pain
--- NOTE | 2021-09-29 10:26 | Operative Report ---
Operative Report Operative Report: Date of procedure: 09/29/2021 Pre-operative diagnosis: End-Stage Renal Disease Post-operative diagnosis: End-Stage Renal Disease Procedure(s): Creation of Left Brachial Artery to Cephalic Vein Arteriovenous Fistula Surgeon: Aj Dykes MD Insole And Heel Stiffener: None Anesthesia: Regional/MAC EBL: Minimal Counts: Correct Complications: None Condition: Stable Findings: Successful creation of left brachiocephalic arteriovenous fistula with palpable thrill and palpable radial pulse at the completion of the case. Specimen: None Indications: The patient is a 46-year-old male with history of end-stage renal disease who is currently on hemodialysis through a right internal jugular permacath. He is in need of long-term dialysis access and was found to have a suitable vein for creation of a left brachiocephalic arteriovenous fistula. He was given the risk, benefits, and alternative procedures of creation of an arteriovenous fistula and consented to the procedure. Description of Procedure: The patient had a regional block of the patient's left arm was performed in the preoperative area prior to being transported to the operating room. Once the regional block was performed the patient was transported to the operating room and adequate sedation was given. When the patient was sedated a timeout was performed and the patient's left arm was then prepped and draped in normal sterile fashion. A transverse incision was then made and carried down to the cephalic vein using sharp dissection. The vein was dissected out both proximally and distally and suture ligated and divided distally. I flushed the vein with heparinized saline and flow was controlled with a bulldog clamp. I then dissected out the brachial artery through this incision circumferentially both proximal and distal and controlled the artery with vessel loops. I systemically heparinized the patient with 3000 units of heparin IV and used angled DeBakey clamps to control flow through the artery. I created an arteriotomy using an 11 blade and Ramirez scissors. I created an end to side anastomosis between the cephalic vein and brachial artery using a 6-0 Prolene in running fashion. Prior to completing the anastomosis I flashed the artery both proximally and distally and then flushed the anastomosis with heparinized saline to remove any debris. I then completed the anastomosis and removed all clamps allowing flow into the fistula which had an adequate thrill. I achieved hemostasis with a combination of Quick Clot and electrocautery. Once hemostasis had been achieved I closed the wound in 2 layers using a 3-0 Vicryl in a running fashion in the deep dermal layer and a 4-0 Monocryl in running fashion in the subcuticular layer. I then dressed the wound with Dermabond. The patient tolerated the procedure well. All sponge, needle, and instrument counts were correct. The patient was taken to the recovery area in stable condition.
[2021-09-29 13:18] VITALS: BP 160/98
--- NOTE | 2021-09-29 15:34 | Post Anesthesia Evaluation ---
- Post Anesthesia Evaluation Patient Participated: Yes Airway Patent: Yes Stable Respiratory Function: Yes Nausea/Vomiting: No Temp > 96.8F: Yes Pain Manageable: Yes Adequeate Hydration: Yes Anesthesia Complications: No Block Receding Appropriately: Yes Patient on Ventilator: No
== END 2021-09-29 12:25 | disposition home or self-care (01) ==
LOC: OR 05:41
PROVIDERS: ATTEND Surgery Vascular Surgery
DX: I12.0 Hypertensive chronic kidney disease with stage 5 chronic kidney disease or end stage renal disease (principal); N18.6 End stage renal disease; Z99.2 Dependence on renal dialysis; E66.9 Obesity, unspecified; Z87.01 Personal history of pneumonia (recurrent); Z87.891 Personal history of nicotine dependence; Z79.899 Other long term (current) drug therapy; Z88.8 Allergy status to other drugs, medicaments and biological substances; Z98.890 Other specified postprocedural states
CPT/HCPCS: 36415; 36818; 64450; 80048; 85027; J0690; J1644; J2250; J3010; J3490; J7030; J7040; J7050; J7120; Q0162; J2704; J2720

== ENCOUNTER 2022-04-22 05:59 | Day surgery (SDC) | payer MEDICAID ==
[2022-04-22] MEDS ORDERED: SODIUM CHLORIDE 0.9% 1000 ML 1,000 ML IV SCH (06:00)
[2022-04-22] MEDS ORDERED: MIDAZOLAM 2 MG/2 ML INJ IV SCH (06:00)
[2022-04-22] MEDS ORDERED: ceFAZolin/STERILE WATER 2 GM/20 ML SYRINGE IV NR (06:00)
[2022-04-22 07:11] LABS: Hematocrit 29.9 % (35.5-45.6); Hemoglobin 9.7 gm/dl (11.8-15.2); Mean Corpuscular HGB Conc 32 % (32-34); Mean Corpuscular Volume 84 fl (84-94); Platelet Count 174 K/mm3 (140-440); Red Blood Count 3.56 M/mm3 (3.65-5.03); Red Cell Distribution Width 19.1 % (13.2-15.2)
--- NOTE | 2022-04-22 07:23 | Anesthesia Consultation ---
Anesthesia Consult and Med Hx Date of service: 04/22/22 - Airway Anesthetic Teeth Evaluation: Good ROM Head & Neck: Adequate Mental/Hyoid Distance: Adequate Mallampati Class: Class III Intubation Access Assessment: Possibly Difficult - Pre-Operative Health Status ASA Pre-Surgery Classification: ASA3 Proposed Anesthetic Plan: General - Pulmonary Hx Smoking: Yes (1 black 'n mild per day) Hx Respiratory Symptoms: No Hx Sleep Apnea: Yes (has been recommended for sleep study but not done yet) - Cardiovascular System Hx Hypertension: Yes (took labetalolo this morning) Hx Heart Attack/AMI: No Hx Percutaneous Transluminal Coronary Angioplasty (PTCA): No - Central Nervous System CVA: No - Endocrine Hx End Stage Renal Disease: Yes (last HD 04/21/22) Hx Liver Disease: No Hx Insulin Dependent Diabetes: No Hx Non-Insulin Dependent Diabetes: No Hx Thyroid Disease: No - Hematic Hx Anemia: Yes - Other Systems Hx Substance Use: Yes (occasional THC) Hx Obesity: Yes (BMI 35) - Additional Comments Anesthesia Medical History Comments: No hx anesthetic complications.
[2022-04-22] MEDS ORDERED: fentaNYL 100 MCG/2 ML INJ IV PRN (07:24)
[2022-04-22] MEDS ORDERED: HYDROcodone/ACETAMINOPHEN 5-325 MG TAB PO PRN (07:24)
--- NOTE | 2022-04-22 07:24 | Anesthesia Day of Surgery ---
Anesthesia Day of Surgery - Day of Surgery Patient Examined: Yes Patient H&P Reviewed: Yes Patient is NPO: Yes
[2022-04-22] MEDS ORDERED: propofoL 200 MG/20 ML VIAL IV ONE (07:43)
[2022-04-22] MEDS ORDERED: ONDANSETRON 4 MG/2 ML INJ ONE (07:43)
[2022-04-22] MEDS ORDERED: LIDOCAINE MPF (2%) 20 MG/1 ML VIAL 5 ML ONE (07:43)
[2022-04-22 07:53] LABS: Calcium 9.1 mg/dL (8.4-10.2)
[2022-04-22] MEDS ORDERED: rifAMPin 600 MG VIAL ONE (08:06)
[2022-04-22] MEDS ORDERED: HEPARIN 10,000 UNITS/10 ML VIAL ONE ×2 (08:06→10:30)
[2022-04-22] MEDS ORDERED: SODIUM CHLORIDE 0.9% 500 ML 500 ML ONE (08:06)
[2022-04-22] MEDS ORDERED: BUPIVACAINE/PF (0.5%) 5 MG/1 ML 30 ML VIAL INFILTRATI ONE (08:06)
[2022-04-22] MEDS ORDERED: HYDROmorphone 1 MG/1 ML INJ ONE (08:43)
[2022-04-22 08:53] LABS: BUN/Creatinine Ratio 5; Blood Urea Nitrogen 58 mg/dL (9-20); Calcium 9.1 mg/dL (8.4-10.2)
[2022-04-22] MEDS ORDERED: SODIUM CHLORIDE P/F VIAL 10 ML 10 ML ONE (09:10)
[2022-04-22] MEDS ORDERED: SODIUM CHLORIDE 0.9% IRR 1,000 ML BOTTLE IR ONE (09:15)
[2022-04-22] MEDS ORDERED: HEPARIN 2,000 UNIT in SODIUM CHLORIDE 0.9% 500 ML 500 ML IR ONE (09:15)
[2022-04-22] MEDS ORDERED: rifAMPin 600 MG in SODIUM CHLORIDE 0.9% 50 ML IR ONE (09:15)
[2022-04-22] MEDS ORDERED: BUPIVACAINE/PF (0.25%) 2.5 MG/ML 30 ML VIAL INFILTRATI ONE ×2 (09:15)
[2022-04-22] MEDS ORDERED: ePHEDrine SULFATE 50 MG/1 ML INJ ONE (09:26)
[2022-04-22] MEDS ORDERED: dexAMETHasone 20 MG/5 ML VIAL ONE (10:17)
--- NOTE | 2022-04-22 10:56 | Short Stay Summary ---
Short Stay Documentation Date of service: 04/22/22 Narrative H&P: See H&P - History H&P: obtained from office - Allergies and Medications Current Medications: Allergies amlodipine Allergy (Verified 04/19/22 14:53) Shortness of Breath Home Medications Medication Instructions Recorded Confirmed Last Taken Type NIFEdipine [Nifedipine] 30 mg PO QDAY 09/24/21 04/22/22 04/21/22 09:00 History labetaloL [Labetalol 100mg TAB] 200 mg PO BID 09/29/21 04/22/22 04/22/22 05:00 History Isosorbide Dinitrate 30 mg PO DAILY 04/19/22 04/22/22 04/21/22 09:00 History Sevelamer Carbonate [Renvela] 800 mg PO TID 04/19/22 04/22/22 04/21/22 17:00 History Active Medications Hydrocodone Bitart/Acetaminophen (Hydrocodone/Acetaminophen 5-325 Mg Tab) 2 each PO ONCE PRN PRN Reason: Pain, Moderate (4-6) Cefazolin Sodium (Cefazolin/Sterile Water 2 Gm/20 Ml Syringe) 2 gm IV PREOP NR Stop: 04/22/22 20:00 Fentanyl (Fentanyl 100 Mcg/2 Ml Inj) 50 mcg IV Q5MIN PRN PRN Reason: Pain , Severe (7-10) Sodium Chloride (Nacl 0.9% 1000 Ml) 1,000 mls @ 42 mls/hr IV DIRECT FLEX Stop: 04/22/22 23:59 Midazolam HCl (Midazolam 2 Mg/2 Ml Inj) 2 mg IV PREOP FLEX - Brief post op/procedure progress note Date of procedure: 04/22/22 Pre-op diagnosis: Complications of Dialysis Access Post-op diagnosis: same Procedure: 1. Revision with Elevation of Left Brachiocephalic Arteriovenous Fistula 2. Open Thrombectomy of the Left Brachiocephalic Arteriovenous Fistula with 4 Jennifer 3. Patch Angioplasty of Left Brachiocephalic Arteriovenous Fistula With Bovine Pericardial Patch Anesthesia: GETA Surgeon: YOUNG DURANT Estimated blood loss: 50-100ml Pathology: list (Left arm arteriovenous fistula thrombus) Specimen disposition: to lab Condition: stable - Disposition Condition at discharge: Good Disposition: 01 HOME / SELF CARE / HOMELESS Short Stay Discharge Plan Activity: other (No heavy lifting with left arm for 2 weeks) Wound: open to air, keep clean and dry, other (Okay to wash the left arm incision with soap and water but do not soak in water for 2 weeks.) Special Instructions: other (Eliquis 5 mg samples given. Take 1 tablet every twice a day (every 12 hours) until samples have been completed) Follow up with: YOUNG DURANT MD [Staff Physician] - 14 Days Prescriptions: Oxycodone HCl/Acetaminophen [Percocet 7.5/325 mg] 1 each PO Q6HR PRN #40 tab PRN Reason: Pain
--- NOTE | 2022-04-22 11:06 | Operative Report ---
Operative Report Operative Report: Date of Procedure: 04/22/2022 Pre-operative Diagnosis: Complications of Dialysis Access Post-operative Diagnosis: Same Procedure(s): 1. Revision with Elevation of Left Brachiocephalic Arteriovenous Fistula 2. Open Thrombectomy of the Left Brachiocephalic Arteriovenous Fistula with 4 Jennifer 3. Patch Angioplasty of Left Brachiocephalic Arteriovenous Fistula With Bovine Pericardial Patch Surgeon: Aj Dykes M.D. Revival Clerk: None Anesthesia: General Endotracheal Anesthesia EBL: 100 mL Counts: Correct Complications: None Condition: Stable Findings: Upon entering the incision the fistula was found to the thrombosed. I was able to perform an open thrombectomy and there was a palpable thrill in the fistula at the completion of the case. Specimen: Organized thrombus from left arm AV fistula was sent to pathology. Indication: The patient is a 46-year-old male with a history of end-stage renal disease who had creation of a left brachiocephalic arteriovenous fistula that had attempts of access however it was too deep so they were unable to access the fistula at his dialysis center. He is in need of revision with elevation of the fistula to assist with accessing. He was given the risk, benefits, and alternative procedures and consented to the procedure. Description of Procedure: The patient was brought to the operating room and laid in supine position. After general endotracheal anesthesia was achieved his left arm was prepped and draped in normal sterile fashion. A longitudinal incision was created in the left arm and centered over the presumed course of the brachiocephalic arteriovenous fistula. Of note there was pulsatility near the arterial inflow however I had difficulty palpating a thrill or pulse in the midportion of the fistula or the venous outflow of the fistula. Upon dissecting down to the fistula it became obvious that the fistula was thrombosed just distal to the arterial anastomosis. I systemically heparinized the patient with 5000 units heparin IV and then clamped the arterial inflow with a DeBakey clamp. I then created a venotomy using an 11 blade and Ramirez scissors and passed a 4 Jennifer into the venous outflow and pulled back and organized thrombus. I then flushed the venous outflow with heparinized saline and clamped this with an angled DeBakey clamp. I then passed the 4 Jennifer into the arterial inflow and removed and organized blood and at that point there was adequate arterial inflow. I used a bovine pericardial patch to close the venotomy with two 6-0 Prolene's in running fashion. Prior to completing the closure I flashed the arterial inflow as well as the venous outflow and then flushed the venotomy with heparinized saline. I then released the clamps allowing flow into the fistula which had a palpable thrill. I continued the revision with elevation by dissecting the fistula circumferentially throughout the course of the incision. All side branches were suture ligated and divided. Once the side branches had been suture-ligated and divided in the fistula had been dissected circumferentially I created a subcutaneous pouch on the lateral incision to place the fistula in. Hemostasis within the wound was achieved with a combination of direct pressure and electrocautery. Once hemostasis was achieved I anesthetized wound with 0.5% Marcaine and then closed the wound in 2 layers using a 3-0 Vicryl running fashion in the deep dermal layer and a 4-0 Monocryl in running fashion the subcuticular layer and then dressed the wound with Dermabond. The patient tolerated the procedure well. All sponge, needle, and instrument counts were correct. The patient was taken to the recovery area in stable condition.
[2022-04-22] MEDS ORDERED: APIXABAN 5 MG TAB PO SCH (12:00)
[2022-04-22] MEDS ORDERED: APIXABAN 5 MG TAB PO ONE (12:00)
--- NOTE | 2022-04-22 12:32 | Post Anesthesia Evaluation ---
- Post Anesthesia Evaluation Patient Participated: Yes Airway Patent: Yes Stable Respiratory Function: Yes Nausea/Vomiting: No Temp > 96.8F: Yes Pain Manageable: Yes Adequeate Hydration: Yes Anesthesia Complications: No
[2022-04-22 12:45] VITALS: BP 146/89
== END 2022-04-22 12:20 | disposition home or self-care (01) ==
LOC: OR 05:59
PROVIDERS: ATTEND Surgery Vascular Surgery
DX: T82.868A Thrombosis due to vascular prosthetic devices, implants and grafts, initial encounter (principal); I12.0 Hypertensive chronic kidney disease with stage 5 chronic kidney disease or end stage renal disease; N18.6 End stage renal disease; G47.30 Sleep apnea, unspecified; D64.9 Anemia, unspecified; F17.210 Nicotine dependence, cigarettes, uncomplicated; Z88.8 Allergy status to other drugs, medicaments and biological substances; Z79.899 Other long term (current) drug therapy; Z98.890 Other specified postprocedural states; Y82.8 Other medical devices associated with adverse incidents; Y92.89 Other specified places as the place of occurrence of the external cause
CPT/HCPCS: 36415; 36833; 80048; 85027; 86850; 86900; 86901; 88304; C1757; C1768; J0690; J1100; J1170; J1644; J2405; J2704; J3010; J3490; J7030; J7040

== ENCOUNTER 2022-04-23 17:52 | Emergency (ER) | payer MEDICAID ==
[2022-04-23 18:07] VITALS: BP 137/84
== END 2022-04-24 02:00 | disposition left against medical advice (07) ==
LOC: ED 17:52
DX: S40.821A Blister (nonthermal) of right upper arm, initial encounter (principal); Z53.21 Procedure and treatment not carried out due to patient leaving prior to being seen by health care provider; X58.XXXA Exposure to other specified factors, initial encounter; Y93.89 Activity, other specified; Y92.89 Other specified places as the place of occurrence of the external cause; Y99.8 Other external cause status

== ENCOUNTER 2022-04-25 22:39 | Emergency (ER) | payer MEDICAID ==
[2022-04-25 22:44] VITALS: BP 148/103
== END 2022-04-26 23:36 | disposition left against medical advice (07) ==
LOC: ED 22:39
DX: L98.8 Other specified disorders of the skin and subcutaneous tissue (principal); Z53.21 Procedure and treatment not carried out due to patient leaving prior to being seen by health care provider

== ENCOUNTER 2022-05-09 11:04 | Day surgery (SDC) | payer MEDICAID ==
[~2022-05-09 11:04] MED LIST changes: -HEPARIN 10,000 UNITS/10 ML VIAL IV ONE; +MIDAZOLAM 2 MG/2 ML INJ IV NR; +SODIUM CHLORIDE 0.9% 1000 ML 1,000 ML IV SCH; -SODIUM CHLORIDE 0.9% 500 ML IVPB IRRIGATION ONE; -SODIUM CHLORIDE 0.9% IRR 1,500 ML BOTTLE IR ONE; +ceFAZolin/Water 2 GM/20 ML 2 GM/20 ML SYRINGE IV NR
--- NOTE | 2022-05-09 11:31 | Anesthesia Consultation ---
Anesthesia Consult and Med Hx Date of service: 05/09/22 - Airway Anesthetic Teeth Evaluation: Good (Multiple missing teeth) ROM Head & Neck: Adequate Mental/Hyoid Distance: Inadequate Mallampati Class: Class II Intubation Access Assessment: Probably Good - Pulmonary Exam CTA: Yes - Pre-Operative Health Status ASA Pre-Surgery Classification: ASA3 Proposed Anesthetic Plan: General - Pulmonary Hx Smoking: Yes (1 black 'n mild per day) Hx Respiratory Symptoms: No Hx Sleep Apnea: Yes (has been recommended for sleep study but not done yet) - Cardiovascular System Hx Hypertension: Yes Hx Percutaneous Transluminal Coronary Angioplasty (PTCA): No - Central Nervous System Hx Neuromuscular Disorder: No Hx Back Pain: Yes (LOWER BACK PAIN) Hx Psychiatric Problems: No - Endocrine Hx Renal Disease: Yes Hx End Stage Renal Disease: Yes Hx Liver Disease: No Hx Insulin Dependent Diabetes: No Hx Non-Insulin Dependent Diabetes: No Hx Thyroid Disease: No - Hematic Hx Anemia: Yes - Other Systems Hx Alcohol Use: No Hx Substance Use: Yes (occasional THC) Hx Cancer: No Hx Obesity: Yes (BMI 35) - Additional Comments Anesthesia Medical History Comments: Pt denies previous anesthesia complications
--- NOTE | 2022-05-09 11:33 | Anesthesia Day of Surgery ---
Anesthesia Day of Surgery - Day of Surgery Patient Examined: Yes Patient H&P Reviewed: Yes Patient is NPO: Yes Beta Blockers: No Cardiac Clearance: No Pulmonary Clearance: No
[2022-05-09] MEDS ORDERED: HYDROmorphone 0.5 MG/0.5 ML INJ IV PRN ×2 (11:57)
[2022-05-09] MEDS ORDERED: ONDANSETRON 4 MG/2 ML INJ IV PRN (11:57)
[2022-05-09] MEDS ORDERED: MIDAZOLAM 2 MG/2 ML INJ IV NR (12:00)
[2022-05-09] MEDS ORDERED: propofoL 200 MG/20 ML VIAL IV ONE (12:37)
[2022-05-09] MEDS ORDERED: LIDOCAINE MPF (2%) 20 MG/1 ML VIAL 5 ML ONE (12:37)
[2022-05-09] MEDS ORDERED: fentaNYL 100 MCG/2 ML INJ ONE (12:37)
[2022-05-09] MEDS ORDERED: MIDAZOLAM 2 MG/2 ML INJ ONE (12:37)
[2022-05-09 12:40] LABS: Hematocrit 26.9 % (35.5-45.6); Hemoglobin 8.8 gm/dl (11.8-15.2); Mean Corpuscular HGB Conc 33 % (32-34); Mean Corpuscular Volume 87 fl (84-94); Platelet Count 216 K/mm3 (140-440); Red Blood Count 3.08 M/mm3 (3.65-5.03); Red Cell Distribution Width 19.5 % (13.2-15.2)
[2022-05-09 12:53] LABS: Calcium 9.4 mg/dL (8.4-10.2)
[2022-05-09] MEDS ORDERED: BUPIVACAINE/PF (0.5%) 5 MG/1 ML 30 ML VIAL INFILTRATI ONE (12:56)
[2022-05-09] MEDS ORDERED: HEPARIN 10,000 UNITS/10 ML VIAL ONE (12:56)
[2022-05-09] MEDS ORDERED: SODIUM CHLORIDE 0.9% 500 ML 500 ML ONE (12:56)
--- NOTE | 2022-05-09 14:55 | Short Stay Summary ---
Short Stay Documentation Date of service: 05/09/22 Narrative H&P: The patient is a 47-year-old male with a history of ESRD who recently underwent a revision with thrombectomy and elevation of his left brachiocephalic AV Fistula. He was started on Eliquis after the operation and developed a postoperative hematoma. He presented with complaints of pain in his left arm. He has no additional complaints. He is in need of drainage of the hematoma. He was given the risk, benefits, and alternative procedures and consented to the procedure. - History Past Medical History: anemia, dialysis, ESRD, heart failure, hypertension Past Surgical History: Other (creation of left arm AVF, revision with elevation and open thrombectomy of left AVF) Social history: - Allergies and Medications Current Medications: Allergies amlodipine Allergy (Verified 05/06/22 15:20) Shortness of Breath Home Medications Medication Instructions Recorded Confirmed Last Taken Type NIFEdipine [Nifedipine] 30 mg PO QDAY 09/24/21 05/06/22 05/09/22 08:00 History labetaloL [Labetalol 100mg TAB] 200 mg PO BID 09/29/21 05/06/22 05/09/22 08:00 History Isosorbide Dinitrate 30 mg PO DAILY 04/19/22 05/06/22 05/09/22 08:00 History Sevelamer Carbonate [Renvela] 800 mg PO TID 04/19/22 05/06/22 05/09/22 08:00 History Oxycodone HCl/Acetaminophen 1 each PO Q6HR PRN #40 tab 04/22/22 05/06/22 05/09/22 08:00 Rx [Percocet 7.5/325 mg] Active Medications Hydromorphone HCl (Hydromorphone 0.5 Mg/0.5 Ml Inj) 0.25 mg IV Q10MIN PRN PRN Reason: Pain, Moderate (4-6) Stop: 05/09/22 20:00 Hydromorphone HCl (Hydromorphone 0.5 Mg/0.5 Ml Inj) 0.5 mg IV Q10MIN PRN PRN Reason: Pain , Severe (7-10) Stop: 05/09/22 20:00 Cefazolin Sodium (Ancef/Sterile Water 2 Gm/20 Ml) 2 gm in 20 mls @ 80 mls/hr IV PREOP NR; Protocol Stop: 05/09/22 23:59 Sodium Chloride (Nacl 0.9% 1000 Ml) 1,000 mls @ 42 mls/hr IV DIRECT FLEX Stop: 05/09/22 23:59 Last Admin: 05/09/22 11:55 Dose: 42 mls/hr Midazolam HCl (Midazolam 2 Mg/2 Ml Inj) 2 mg IV PREOP NR Stop: 05/09/22 23:59 Last Admin: 05/09/22 13:01 Dose: 2 mg - Physical exam General appearance: no acute distress Lungs: Normal air movement Breasts: deferred Heart: Regular rate Gastrointestinal: normal Male Genitourinary: deferred Rectal Exam: deferred Extremities: abnormal (left arm AVF with plapable thrill, dehiscence of distal left arm incision with swelling of the arm and small blister) - Brief post op/procedure progress note Date of procedure: 05/09/22 Pre-op diagnosis: Left Arm Postoperative Hematoma Post-op diagnosis: same Procedure: Incision and Drainage of Left Arm Postoperative Hematoma Anesthesia: GETA Surgeon: YOUNG DURANT Estimated blood loss: minimal Pathology: list (Hematoma from left arm incision) Specimen disposition: discarded Condition: stable - Disposition Condition at discharge: Good Disposition: 01 HOME / SELF CARE / HOMELESS Short Stay Discharge Plan Activity: other (No heavy lifting left arm for 2 weeks.) Wound: remove dressing (72 hours), other (After dressing is removed okay to wash the left arm incision with soap and water but do not soak in water for 2 weeks.) Follow up with: YOUNG DURANT MD [Staff Physician] - 14 Days Prescriptions: Oxycodone HCl/Acetaminophen [Percocet 7.5/325 mg] 1 each PO Q6HR PRN #40 tab PRN Reason: Pain
[2022-05-09] MEDS ORDERED: NEOMY 40 MG/POLYMYXIN B 200,000 UNITS/ML (GU) AMPULE IR ONE ×2 (15:18→15:33)
[2022-05-09] MEDS ORDERED: SODIUM CHLORIDE 0.9% 500 ML IVPB IRRIGATION ONE (15:34)
[2022-05-09] MEDS ORDERED: SODIUM CHLORIDE 0.9% IRRIG SOLN 2000 ML IR ONE (15:34)
[2022-05-09] MEDS ORDERED: ePHEDrine SULFATE 50 MG/1 ML INJ ONE (15:39)
--- NOTE | 2022-05-09 15:52 | Operative Report ---
Operative Report Operative Report: Date of Procedure: 05/09/2022 Pre-operative Diagnosis: Left Arm Postoperative Hematoma Post-operative Diagnosis: Same Procedure(s): 1. Incision and Drainage of Left Arm Hematoma 2. Pulse Lavage of Left Arm Incision with Antibiotic Solution Surgeon: Aj Dykes M.D. Director Airport: None Anesthesia: General Endotracheal Anesthesia EBL: Minimal Counts: Correct Complications: None Condition: Stable Findings: Significant amount of thrombus however there was no active bleeding. Palpable thrill in fistula. Specimen: Thrombus from left arm incision was discarded. Indication: The patient is a 47-year-old male who underwent revision with elevation and open thrombectomy of left arm arteriovenous fistula. Afterwards he was started on Eliquis 5 mg p.o. twice daily for anticoagulation however this resulted in a postoperative hematoma with dehiscence of the distal portion of the wound. He is in need of evacuation of the hematoma. He was given the risk, benefits, and alternative procedures and consented to the procedure. Description of Procedure: The patient was brought to the operating room and laid in supine position. After timeout was performed general endotracheal anesthesia was achieved and his left arm was prepped and draped in normal sterile fashion. The dehisced part of his wound was slightly extended proximally and the wound was digitally explored to extract as much of the hematoma as possible. I then used the suction to further remove the bulk of the hematoma. I then performed pulse irrigation with antibiotic solution until the majority of the hematoma had been removed. The wound was explored and there was no evidence of active bleeding. There was a palpable thrill within the fistula. The open portion of the incision was reapproximated using 2-0 Ethilon in interrupted vertical mattress fashion. The wound was then dressed with a Xeroform gauze, fluffs, and ABD pad, a Kerlix roll, and a 4 inch Samir bandage to apply pressure to the space and prevent a seroma. The patient tolerated the procedure well. All sponge, needle, and instrument counts were correct. The patient was taken to the recovery area in stable condition.
[2022-05-09] MEDS ORDERED: HEPARIN 10,000 UNIT/1 ML VIAL ONE (16:10)
[2022-05-09] MEDS ORDERED: hydrALAZINE 20 MG/1 ML INJ IV PRN (16:48)
[2022-05-09] MEDS ORDERED: hydrALAZINE 20 MG/1 ML INJ ONE (16:51)
--- NOTE | 2022-05-09 18:13 | Post Anesthesia Evaluation ---
- Post Anesthesia Evaluation Patient Participated: Yes Airway Patent: Yes Stable Respiratory Function: Yes Nausea/Vomiting: No Temp > 96.8F: Yes Pain Manageable: Yes Adequeate Hydration: Yes Anesthesia Complications: No Block Receding Appropriately: Not Applicable Patient on Ventilator: No
[2022-05-09 18:54] VITALS: BP 155/90
[2022-05-09] MEDS ORDERED: HEPARIN 10,000 UNIT/1 ML VIAL IV ONE (19:00)
== END 2022-05-09 18:43 | disposition home or self-care (01) ==
LOC: OR 11:04
PROVIDERS: ATTEND Surgery Vascular Surgery
DX: L76.32 Postprocedural hematoma of skin and subcutaneous tissue following other procedure (principal); I13.2 Hypertensive heart and chronic kidney disease with heart failure and with stage 5 chronic kidney disease, or end stage renal disease; I50.9 Heart failure, unspecified; N18.6 End stage renal disease; D64.9 Anemia, unspecified; F17.210 Nicotine dependence, cigarettes, uncomplicated; G47.30 Sleep apnea, unspecified; E66.9 Obesity, unspecified; Z99.2 Dependence on renal dialysis; Z98.890 Other specified postprocedural states; Z79.899 Other long term (current) drug therapy; Z88.8 Allergy status to other drugs, medicaments and biological substances; Z68.35 Body mass index [BMI] 35.0-35.9, adult
CPT/HCPCS: 10140; 36415; 80048; 85027; 86850; 86900; 86901; J0360; J0690; J1644; J2250; J2704; J3010; J3490; J7030; J7040